=== PATIENT | female | born 1960 | race Caucasian/White ===

== ENCOUNTER → 2018-07-11 07:56 | Outpatient (CLI) | payer MEDICARE, SELFPAY ==
--- NOTE | 2018-07-11 07:59 | BI_ITS ---
MAMMOGRAPHY - BILATERAL SCREENING REASON FOR EXAM: Female, 58 years old. Routine annual screening examination. PERTINENT HISTORY: Mother with breast cancer. TECHNIQUE: Digital bilateral breast patti (3D mammographic acquisition) in the CC and MLO projections. 2-D mediolateral oblique (MLO) and craniocaudad (CC) views of both breasts were obtained. CAD: Full Field Digital Mammography with Computer Added Detection was performed. COMPARISON: Comparison is made with prior study dated June 18, 2017 and March 06, 2016. FINDINGS: Breast Composition: The breasts are almost entirely fatty. There are no dominant masses or suspicious calcifications. Stable benign-appearing right axillary lymph nodes. No other significant abnormalities are identified. There has been no significant change since the prior study. BI/SCREENING MAMM (CAD), BILAT IMPRESSION: Stable bilateral screening mammogram. Yearly follow-up mammogram recommended. (A) ASSESSMENT CATEGORY: BIRADS Category 2: Benign. A letter regarding these results will be sent to the patient by the facility within 30 days. Approximately 10% of breast cancers are not detected by mammography. A normal mammogram should not delay biopsy of a clinically suspicious abnormality. [id number] Electronically Signed: Willem Velasquez MD at 8:59 EST Tel [phone], Service support ,
== END ==
PROVIDERS: Family Provider Family Medicine; PCP Family Medicine; Referring Provider Family Medicine; Visit Provider Family Medicine
DX: Z12.31 Encounter for screening mammogram for malignant neoplasm of breast (principal)
CPT/HCPCS: 77063; 77067

== ENCOUNTER → 2018-12-04 | Outpatient (CLI) | payer MEDICARE, SELFPAY ==
--- NOTE | 2018-12-04 09:03 | RAD_ITS ---
STUDY: X-RAY - LEFT KNEE REASON FOR EXAM: Chronic pain. TECHNIQUE: 4 view(s) of the knee. COMPARISON: None. FINDINGS: Normal visualized distal femur. Normal visualized proximal tibia and fibula. Normal proximal tibiofibular articulation. There are marginal osteophytes and moderate joint space narrowing of the medial femorotibial compartment. There are small marginal osteophytes without joint space narrowing of the lateral femorotibial compartment. There are marginal osteophytes with mild joint space narrowing of the patellofemoral articulation. There is a small enthesophyte at the superior pole of the patella. RAD/Knee 4 or More Views IMPRESSION: Arthrosis of the medial femorotibial and patellofemoral compartments. Electronically Signed: Shashank Burton MD at 11:51 EDT Tel , Service support ,
== END | disposition home or self-care (01) ==
PROVIDERS: Family Provider Family Medicine; PCP Family Medicine; Referring Provider Orthopaedic Surgery; Visit Provider Orthopaedic Surgery
DX: M25.562 Pain in left knee (principal)
CPT/HCPCS: 73564

== ENCOUNTER → 2019-02-02 | Outpatient (CLI) | payer MEDICARE, SELFPAY ==
[2018-12-22 09:32] VITALS: BMI 36.8
--- NOTE | 2019-02-02 10:00 | RAD_ITS ---
STUDY: X-RAY - RIGHT KNEE REASON FOR EXAM: Female, 58 years old. Pain TECHNIQUE: 5 view(s) of the knee. COMPARISON: None. FINDINGS: There is demineralization of the visualized distal femur. There is demineralization of the tibia and fibula. Normal proximal tibiofibular articulation. There is severe degenerative arthrosis of the medial femorotibial compartment with severe joint space narrowing. There is moderate degenerative arthrosis of the lateral femorotibial compartment with moderate joint space narrowing. There is moderate degenerative arthrosis of the patellofemoral articulation. There is a soft tissue prominence in the suprapatellar region suggesting a small volume joint effusion. The soft tissue structures are unremarkable. No visualized fracture. RAD/Knee 4 or More Views IMPRESSION: Arthrosis, Most significant medial compartment. Small joint effusion. Electronically Signed: Ally Bender MD at 17:51 EDT Tel , Service support ,
== END | disposition home or self-care (01) ==
PROVIDERS: Family Provider Family Medicine; PCP Family Medicine; Referring Provider Orthopaedic Surgery; Visit Provider Orthopaedic Surgery
DX: M25.561 Pain in right knee (principal)
CPT/HCPCS: 73564

== ENCOUNTER 2019-03-03 05:53 | Observation (INO) | payer MEDICARE, SELFPAY ==
[2018-12-22 09:32] VITALS: BMI 36.8
[2019-02-24 10:18] VITALS: BP 136/77; PULSE 72; RESP 16; TEMP 36.6; O2SAT 97; BMI 37.5
[2019-02-24 11:05] LABS: Hemoglobin 13.6 g/dl (12.0-15.0); Mean Corp Hgb Conc 32.4 g/gl (32-36); Mean Corpuscular Hgb 29.2 pg (27.0-32.0); Mean Corpuscular Volume 90.1 fL (81-99); Mean Platelet Vol. 11.1 fl (6.2-12.0); Platelet Count 223 K/mm3 (150-450); RBC Distribution Width CV 14.4 % (11.6-14.6); RBC Distribution Width SD 47.3 fl (35.1-43.9); Red Blood Count 4.66 M/mm3 (4.2-5.4); White Blood Count 10.2 K/mm3 (4.4-11.0)
[2019-02-24 11:06] LABS: Scan Indicated on CBC? Y/N NO
[2019-02-24 11:25] LABS: Anion Gap 6 (5-15); BUN 10 mg/dL (7-18); Calcium,Total 9.1 mg/dL (8.5-10.1); Chloride 106 mmol/L (98-107); Creatinine, Serum 0.67 mg/dL (0.55-1.02); EST Glomerular Filtration Rate 97 mL/min (>60); Est Glom Filt Rate - Afr Amer 117 mL/min (>60); Estimated Creatinine Clearance 69.06 ml/min; Glucose 149 mg/dL (74-106); Potassium 3.8 mmol/L (3.5-5.1); Sodium Level 139 mmol/L (136-145)
[2019-03-03] VITALS (10 sets, daily range): BP systolic 111–136; BP diastolic 61–82; PULSE 71–84; RESP 16; TEMP 36.2–36.8; O2SAT 94–99; BMI 37.5
[2019-03-03] MEDS: Acetaminophen 500 MG Tablet PO (06:37)
[2019-03-03] MEDS: Pregabalin 75 MG Capsule PO (06:37)
[2019-03-03] MEDS: Celecoxib 200 MG Capsule PO (06:38)
[2019-03-03] MEDS: oxyCODONE HCl Cr 10 MG Tablet PO ×2 (06:41→21:40)
--- NOTE | 2019-03-03 07:15 | PCM.HP.BLA ---
History and Physical Date of Admission: 03/03/19 Intake Intake Visit Reasons: L KNEE Allergies etodolac [From Lodine] Allergy (Verified 12/22/18 09:32) Rash metaxalone [Metaxalone] Allergy (Verified 12/22/18 09:32) Rash Medications Cetirizine HCl [Zyrtec] 10 mg PO DAILY 09/09/13 [History Confirmed 02/02/19] acetaminophen 500 mg tablet 500 mg PO Q6H PRN 02/02/19 [History Confirmed 02/02/19] atorvastatin 40 mg tablet 40 mg PO DAILY 02/02/19 [History Confirmed 02/02/19] meloxicam 7.5 mg tablet 7.5 mg PO DAILY 02/02/19 [History Confirmed 02/02/19] tizanidine 2 mg capsule 2 mg PO Q8H PRN 02/02/19 [History Confirmed 02/02/19] PFSH Medical History Mitral valve prolapse (Acute) Heart murmur (Chronic) Social History Smoking Status: Former smoker HPI L KNEE : Chief Complaint: b/l knee pain Surgical H&P: Yes Details: Parts of this documentation were recorded by a scribe, this documentation accurately reflects the service provided and the decisions made by me, Jesse Porras, 02/02/19 0756. JONO DURAN is a 58 year old F here today for b/l knee pain left knee OA. Patient is here today to sign consent for TKA. Denies numbness, tingling or other associated symptoms. Denies any changes in pain since last visit. Has had left knee pain for about a year with it progressing over the last 3 months. She complains of pain over her medial knee and superior knee into her quad. Patient complains of popping, clicking and grinding. She has swelling that comes and goes. She ambulates with a cane due to her knee pain and knee instability. Patient denies any formal physical therapy. She had a cortisone injection on 12/04/18 which was helpful for a few days. She has a OTC knee brace which is not helpful. Patient states she has had pain of her right knee for about 4 years. She had an arthroscopy done about 4 years ago, denies any injections. ROS Const Reports system reviewed and no additional complaints, except as docu Eyes Reports system reviewed and no additional complaints, except as docu ENT Reports system reviewed and no additional complaints, except as docu Card Reports system reviewed and no additional complaints, except as docu Resp Reports system reviewed and no additional complaints, except as docu GI Reports system reviewed and no additional complaints, except as docu Musc Reports system reviewed and no additional complaints, except as docu, Reports as per HPI Skin/Breast Reports system reviewed and no additional complaints, except as docu Neuro Yes system reviewed and no additional complaints, except as docu Psych Reports system reviewed and no additional complaints, except as docu Endo Reports system reviewed and no additional complaints, except as docu Mir/Lymph Reports system reviewed and no additional complaints, except as docu Aller/Immun Reports system reviewed and no additional complaints, except as docu Ortho Exam Right Knee Skin/Wound: No erythema, No ecchymosis, No swelling Knee ROM: Yes ROM-Extension -20 to 0, No ROM-Flexion 0-140 (100) Examination: Yes Med jt line tenderness, No Lat jt line tenderness Patella Grind: Yes KNEE: no joint effusion this day. Left Knee Skin/Wound: No ecchymosis, No erythema, No swelling Homans Sign: No Knee ROM: Yes ROM-Extension -20 to 0, No ROM-Flexion 0-140 (100) Examination: Yes med jt line tenderness Stability: NML: Anterior Drawer, NML: Posterior Drawer, NML: Valgus 30, NML: Varus 30 Patella Grind: Yes Office Procedures Depo-Medrol 40 mg/mL suspension for injection (methylprednisolone acetate) 40 mg intra-articular ONCE Injections Yes Knee Right Details: Obtained consent for injection. Under sterile conditions, injected the patient's right knee with 2cc bupivacaine, 2cc lidocaine and 1cc depomedrol. The patient tolerated the injection well without any noted complication. Patient should call our office if redness develops, pain worsens or if they have any concerns. Office Meds Depo-Medrol Performing Provider: Jesse Porras DO Administered by: Jesse Porras DO on 02/02/19 10:31 Dose Route Admin Location Lot Number Expiration Date [employer] 40 mg intra-articular right knee [id number] 07/26/20 6875-6157-22 [facility] Supplemental Info 02/02/2019 x-ray right knee: Severe tricompartmental DJD worse medially joint space narrowing and spurring. 12/04/2018 x-ray left knee: Moderate to severe spurring medial compartment with joint space narrowing moderate spurring lateral compartment severe spurring patellofemoral compartment Assessment & Plan Problems 1. Primary osteoarthritis of left knee M17.12 2. Primary osteoarthritis of right knee M17.11 Plan Patient is here today to sign consent for left TKA. Reviewed the pre-operative plans with the patient. Risks and benefits of the procedure were fully explained, including but not limited to infection, neurovascular injury, continued pain, arthritis, stiffness, need for further surgery, re-injury, DVT, PE, general risks of anesthesia, and loss of limb or life. The patient understands all the risks and does wish to proceed with written consent. Educated that she is standing the same day of surgery. She should have some relief around 3 months after surgery. Patient educated that she may drive when she feels confident getting in and out of car and is not taking narcotics. Patient may travel about 6-8 weeks after surgery. Surgery date is March 03 2019. Obtained X-rays of patient's right knee. Personally reviewed x-rays. There is no obvious fracture, dislocation, or lucency noted. Increased risk with BL TKA the risk for blood clots and infection doubles. Option for her right knee would be a medial ward service supervisor brace or possible steroid injection. Patient wishes to proceed with injection of right knee this day. Will order medial ward service supervisor brace for right knee medial OA. Follow up 2 weeks post op or sooner if pain, swelling, numbness or associated symptoms, or concerns develop. All questions answered. Patient in agreement of plan. Orders Orders: Ortho Injections Today M17.11 Knee 4 or More Views Today M25.561 Medications Discontinued: Depo-Medrol (methylprednisolone acetate) Discontinued Reason: Office Medication has been Documented as given 40 mg intra-articular ONCE 1 mL 0RF NS M17.11 Coding Level of Care Code Off vis,est,level 4 Diagnoses Primary osteoarthritis of left knee M17.12 Primary osteoarthritis of right knee M17.11 Additional Codes buyer grain.knee () I have re-examined the patient. There are no clinical changes since date of exam
[2019-03-03] MEDS: Cefazolin 2 GM in 0.9% Normal Saline 100 ML IV ×3 (07:45→23:22)
[2019-03-03] MEDS: Morphine 4 MG/ML Syringe (08:58)
[2019-03-03] MEDS: Bupivacaine 0.5% PF 10 ML VIAL (08:58)
[2019-03-03] MEDS: Epinephrine (1 mg/ml) 1 MG/ML VIAL (08:58)
--- NOTE | 2019-03-03 09:35 | RAD_ITS ---
STUDY: X-RAY - LEFT KNEE REASON FOR EXAM: Female, 59 years old. Postop TECHNIQUE: 2 view(s) of the knee. COMPARISON: None. FINDINGS: There is no evidence of fracture or dislocation. The patient is status post left knee arthroplasty with intact hardware in satisfactory alignment. There is soft tissue swelling and subcutaneous air noted, consistent with the patient's recent postoperative state. There are no radiodense foreign bodies. RAD/Knee 1 or 2 Views IMPRESSION: Status post left knee arthroplasty with intact hardware in satisfactory alignment. No fracture or dislocation. Electronically Signed: Pranay Uriarte, at 16:48 EDT Tel , Service support ,
--- NOTE | 2019-03-03 09:40 | OP.PCM_ITS ---
Report of Operation Date of Procedure: 03/03/19 Description of Surgical Findings:: Preoperative diagnosis: Left knee DJD Postoperative diagnosis: Same Procedure: Left total knee arthroplasty Implant: [place] triathlon cemented left femoral component size 4, cemented tibial baseplate size 4, cemented asymmetric patella size 29, polyethylene X3 size 9 CS Anesthesia: Spinal with adductor canal block Tourniquet time: 82 minutes at 300 mmHg Complications: None Condition: Stable to PACU Estimated blood loss: 25 cc Indication for procedure: This is a 59-year-old female with long standing degenerative joint disease of the knee with 20 degree flexion contracture who has failed conservative treatment and wished to proceed with elective total knee arthroplasty. Risk benefits and alternatives were reviewed including; risk of bleeding, infection, nerve artery and tissue damage, continued pain, postoperative stiffness, venous thromboembolism, need for postoperative rehabilitation, mechanical feel to the knee, and expected postoperative course. Procedure: The patient was met in the preoperative holding area. The operative extremity was identified by both patient and physician and was marked. Patient was met by anesthesia. An adductor canal block was placed by anesthesia postoperatively the patient was brought back to the operating room on a wheeled cart and transferred to the operating table in the supine position. Anesthesia was started. A well-padded tourniquet was placed on the operative extremity. The patient was prepped and draped in the usual sterile fashion. A timeout was called to ensure the proper patient procedure and extremity were being contemplated. An Esmarch was used to exsanguinate the extremity. The tourniquet was inflated. A 10 blade scalpel was used to make a midline incision down through the skin and subcutaneous tissue. Skin retractors placed. Bovie was used to perform meticulous hemostasis. full-thickness flaps were elevated medial and lateral along the joint capsule. A deep blade scalpel was used to perform a medial parapatellar arthrotomy. The knee was brought to full extension. A Bovie was used to release the soft tissues off the most proximal aspect of the medial tibial plateau a three-quarter inch curved osteotome was also used for this process. The infrapatellar fat pad was excised. The fat pad was excised partially anterior lateral portion the anterior medial was elevated from the femur. the patella was everted. The knee was brought into flexion. An intramedullary drill was used followed by flexible intramedullary guide ceasar. The distal femoral cutting block was placed and set to remove 10 mm mm of bone and 5 degrees of valgus. The block was secured with pins and an oscillating saw was used to complete the distal femoral cut. During this, and all bony cuts retractors were used to protect the collateral ligaments. At this point a femoral sizer was used to measure the AP dimension of the femur. The sizer block was pinned in 3 degrees of external rotation. The sizing block was removed and the appropriately sized 4-in-1 cutting block was placed over the previously made pinholes. It was checked with an luc wing and the block was secured with pins. An oscillating saw was used to complete the anterior cut followed by the posterior cut followed by the posterior chamfer cut followed by the anterior chamfer cut. The block was removed as well as the fragments. A ronguer was used to remove excess osteophytes. The medial and lateral meniscus were excised as well as the ACL. At this point a PCL retractor was placed and an intramedullary drill was passed down the tibial canal followed by a solid intramedullary guide ceasar. The tibial cutting block was attached and set to remove 9 mm of bone from the high side. This was checked with an external alignment drop ceasar for slope and tilt. It was pinned into place. An oscillating saw was used to complete the tibial plateau cut and the block was removed. A large osteotome was used to elevate the fragment and a Lin and a Bovie were used to free the fragment from the surrounding soft tissue. A rongeur was once again used to remove osteophytes a lamina special assets officer was used to evaluate the posterior capsular structures. A three-quarter inch curved osteotome was used to remove posterior osteophytes. A spacer block was inserted in both extension and flexion to ensure adequate spacing. At this point the flexion gap was balanced however the extension gap was still tight therefore requiring for additional millimeter resection off of the distal femur by reinserting the distal femoral cutting block we then recut the chamfers cuts with the 4-in-1 cutting block and then re-trialed at this point both flexion and extension was balanced. trials were inserted full extension and flexion were achieved in varus and valgus stability throughout range of motion were seen, balancing techniques were performed. At this point the attention was turned towards the patella. A caliper was used to ensure sufficient bone stock to remove 10 mm of bone. A reamer was used to perform this task. Lug holes were made for the appropriate-sized patella. The patella trial was inserted and there was good patellar tracking with knee range of motion. The tibial baseplate was allowed to float into rotation and was marked on the tibial plateau with a Bovie. Lug holes were made in the femur and trials were removed. The tibial baseplate was then sized and its preparation was completed with a fin punch. The knee was thoroughly irrigated. A posterior capsular injection was performed with our standard cocktail. The knee was brought into flexion and irrigated again. The tibial baseplate was cemented. Excess cement was removed with curettes. The polyethylene component was inserted. The femoral component was cemented. The knee was brought into full extension and placed on a bump. The patellar component was cemented. At this point a Betadine rinse was placed and thoroughly irrigated after a few minutes. This was followed by an Iricept rinse which was allowed to sit for 1 minute and then thoroughly irrigated.At this point all gloves were changed. The knee was thoroughly irrigated the joint capsule was closed with #1 Ethibond. Tourniquet was let down followed by 0 Vicryl and 2-0 Vicryl in the subcutaneous tissues. followed by toshia in the skin. Dressing was applied in the form of Xeroform 4 x 4 ABD web roll and an Tom wrap from the foot to the groin. The patient tolerated the procedure well, all counts were correct patient was brought back to the PACU in stable condition.
[2019-03-03] MEDS: HYDROmorphone 0.5 MG/0.5 ML SYRINGE IV (11:27)
[2019-03-03] MEDS: Ketorolac 30 MG/ML Syringe IV (12:59)
[2019-03-03] MEDS: Lactated Ringers 1,000 ML 125 ML IV (13:35)
[2019-03-03] MEDS: APIXABAN 2.5 MG TABLET PO ×2 (13:37→21:40)
[2019-03-03] MEDS: Senna/Docusate Sodium 1 Tablet 2 TABLET PO ×2 (13:37→21:39)
[2019-03-03] MEDS: Acetaminophen 500 MG Tablet 1000 MG PO ×2 (13:38→21:39)
[2019-03-03] MEDS: oxyCODONE 5 MG Tablet PO (17:32)
[2019-03-03] MEDS: Atorvastatin Calcium 40 MG Tablet PO (21:39)
[2019-03-03] MEDS: Loratadine 10 MG Tablet PO (21:40)
[2019-03-04 02:05] VITALS: BP 124/76; PULSE 70; RESP 16; TEMP 36.8; O2SAT 99
[2019-03-04] MEDS: oxyCODONE 5 MG Tablet PO ×2 (03:00→19:43)
[2019-03-04] MEDS: Acetaminophen 500 MG Tablet 1000 MG PO ×3 (05:55→22:12)
[2019-03-04 05:56] LABS: Hematocrit 37.8 % (37-47); Hemoglobin 12.3 g/dl (12.0-15.0); Mean Corp Hgb Conc 32.5 g/gl (32-36); Mean Corpuscular Hgb 29.4 pg (27.0-32.0); Mean Corpuscular Volume 90.2 fL (81-99); Mean Platelet Vol. 11.3 fl (6.2-12.0); Platelet Count 214 K/mm3 (150-450); RBC Distribution Width CV 14.3 % (11.6-14.6); RBC Distribution Width SD 47.1 fl (35.1-43.9); Red Blood Count 4.19 M/mm3 (4.2-5.4); White Blood Count 12.9 K/mm3 (4.4-11.0)
[2019-03-04 06:08] LABS: Scan Indicated on CBC? Y/N NO
--- NOTE | 2019-03-04 06:10 | PCM.PN.ORT ---
Subjective: Doing well pain controlled complaints fevers chills nausea vomiting shortness of breath - Physical Exam Extremities: - - Dressing clean dry and intact compartment soft neurovascular intact Vital Signs Temp Pulse Resp BP Pulse Ox 98.2 F 70 16 124/76 H 99 03/04/19 02:05 03/04/19 02:05 03/04/19 02:05 03/04/19 02:05 03/04/19 02:05 Oxygen Delivery Method Room Air Weight: 198 lb 13.711 oz Body Mass Index (BMI) 37.5 Intake and Output for Last 24 Hours 03/02/19 03/03/19 03/04/19 23:59 23:59 23:59 Intake Total 1899 / 1899 Balance 1899 / 1899 Laboratory Tests Past 24 Hrs 03/04/19 03/04/19 05:42 05:42 WBC 12.9 H RBC 4.19 L Hgb 12.3 Hct 37.8 MCV 90.2 MCH 29.4 MCHC 32.5 RDW 14.3 RDW Differential 47.1 H Plt Count 214 MPV 11.3 Sodium Pending Potassium Pending Chloride Pending Carbon Dioxide Pending Anion Gap Pending BUN Pending Creatinine Pending Est GFR (MDRD) Af Amer Pending Est GFR (MDRD) Non-Af Pending BUN/Creatinine Ratio Pending Glucose Pending Calcium Pending Medical Necessity - Tobacco Use Smoking Status: Current every day smoker Tobacco Use: Cigarettes Assessment/Plan Postop day #1 TKA DC planning possibly today to home Nursing to be changed prior to discharge or postop day number 2 AM New Eliquis 2.5 twice daily for 2 additional weeks Follow-up in the office 2 weeks
--- NOTE | 2019-03-04 06:11 | PCM.DC.SUM ---
Discharge Date and Diagnosis Date of Admission: 03/03/19 Date of Discharge: 03/04/19 Hospital Course and Treatment Summary of Care Provided: The patient is a 59 year old F [] - Physical Exam General: Alert, Oriented x3, Cooperative, No apparent distress Vital Signs Temp Pulse Resp BP Pulse Ox 98.2 F 70 16 124/76 H 99 03/04/19 02:05 03/04/19 02:05 03/04/19 02:05 03/04/19 02:05 03/04/19 02:05 Oxygen Delivery Method Room Air Weight: 198 lb 13.711 oz Body Mass Index (BMI) 37.5 Intake and Output for Last 24 Hours 03/02/19 03/03/19 03/04/19 23:59 23:59 23:59 Intake Total 1899 / 1899 Balance 1899 / 1899 Laboratory Tests Past 24 Hrs 03/04/19 03/04/19 05:42 05:42 WBC 12.9 H RBC 4.19 L Hgb 12.3 Hct 37.8 MCV 90.2 MCH 29.4 MCHC 32.5 RDW 14.3 RDW Differential 47.1 H Plt Count 214 MPV 11.3 Sodium Pending Potassium Pending Chloride Pending Carbon Dioxide Pending Anion Gap Pending BUN Pending Creatinine Pending Est GFR (MDRD) Af Amer Pending Est GFR (MDRD) Non-Af Pending BUN/Creatinine Ratio Pending Glucose Pending Calcium Pending Discharge Diet: No Restrictions Additional Activity Instructions:: Ice and elevate next week while not ambulating. Encourage ambulation weightbearing as tolerated. Encourage FULL knee extension and flexion 1 time EVERY time you get up and down and MULTIPLE times per day. Begin showering postop day #3. Remove the dressing prior to shower gently wash with warm water and antibacterial soap then pat dry place ABD pad and MARCK hose over top. This is to be done daily. If not showering daily must clean incision and change dressing daily. Do not allow animals near incision keep clean. Follow anticoagulation recommendations. Call Dr. Porras with any concerns. Call your doctor if you observe: Fever of 101 or Higher, Shortness of breath, Chest pain Home Medications: Medications to take at Discharge Cetirizine HCl [Zyrtec] 10 mg PO QHS 09/09/13 acetaminophen 500 mg tablet 500 mg PO Q6H PRN 02/02/19 atorvastatin 40 mg tablet 40 mg PO DAILY 02/02/19 tizanidine 2 mg capsule 2 mg PO Q8H PRN 02/02/19 Meloxicam [Mobic] 7.5 mg PO BID 02/24/19 Mv-Mn/Folic Acid/Calcium/Vit K [Women's 50 Plus Multivit Tab] 1 ea PO DAILY 02/24/19 Primary Care Physician: Alf Ann DO [Primary Care Provider] - Medical Necessity - Tobacco Use Smoking Status: Current every day smoker Tobacco Use: Cigarettes Meaningful Use Info Meaningful Use Diagnoses (Choose all that apply): None applicable
[2019-03-04 06:24] LABS: Anion Gap 7 (5-15); BUN 8 mg/dL (7-18); BUN/Creat Ratio 13.8 RATIO (10-20); Calcium,Total 8.7 mg/dL (8.5-10.1); Chloride 105 mmol/L (98-107); Creatinine, Serum 0.58 mg/dL (0.55-1.02); EST Glomerular Filtration Rate 113 mL/min (>60); Est Glom Filt Rate - Afr Amer 137 mL/min (>60); Estimated Creatinine Clearance 79.78 ml/min; Glucose 89 mg/dL (74-106); Potassium 4.1 mmol/L (3.5-5.1); Sodium Level 138 mmol/L (136-145)
--- NOTE | 2019-03-04 06:31 | DCINST_ITS ---
Discharge Diet: No Restrictions Additional Activity Instructions:: Ice and elevate next week while not ambulating. Encourage ambulation weightbearing as tolerated. Encourage FULL knee extension and flexion 1 time EVERY time you get up and down and MULTIPLE times per day. Begin showering postop day #3. Remove the dressing prior to s hower gently wash with warm water and antibacterial soap then pat dry place ABD pad and MARCK hose over top. This is to be done daily. If not showering daily must clean incision and change dressing daily. Do not allow animals near incision keep clean. Follow anticoagulation recommendations. Call Dr. Porras with any concerns. Call your doctor if you observe: Fever of 101 or Higher, Shortness of breath, Chest pain Allergies/Adverse Reactions: Allergies etodolac [From Lodine] Allergy (Verified 03/03/19 06:21) Rash metaxalone [Metaxalone] Allergy (Verified 03/03/19 06:21) Rash Medications to take at Discharge Cetirizine HCl [Zyrtec] 10 mg PO QHS 09/09/13 acetaminophen 500 mg tablet 500 mg PO Q6H PRN 02/02/19 atorvastatin 40 mg tablet 40 mg PO DAILY 02/02/19 tizanidine 2 mg capsule 2 mg PO Q8H PRN 02/02/19 Mv-Mn/Folic Acid/Calcium/Vit K [Women's 50 Plus Multivit Tab] 1 ea PO DAILY 02/24/19 Acetaminophen [Tylenol] 1,000 mg PO Q8 #100 tab 03/04/19 Apixaban [Eliquis] 2.5 mg PO BID 14 Days #28 tab 03/04/19 Oxycodone [Oxyir] 5 - 10 mg PO Q4H PRN PRN 7 Days #60 tab 03/04/19 The following prescriptions were given: Apixaban [Eliquis] 2.5 mg PO BID 14 Days #28 tab Transmission Status: Received by [facility] Oxycodone [Oxyir] 5 - 10 mg PO Q4H PRN PRN 7 Days #60 tab PRN Reason: Mod-Severe Pain (-06/04) Transmission Status: Received by [facility] Acetaminophen [Tylenol] 1,000 mg PO Q8 #100 tab Transmission Status: Received by [facility] Primary Care Physician: Alf Ann DO [Primary Care Provider] - Test Results: Test results from this visit will be discussed in further detail at your follow- up appointment, if applicable. Please Follow Up With: Jesse Porras DO - 2 Weeks
[2019-03-04] MEDS: Ketorolac 30 MG/ML Syringe IV (07:28)
[2019-03-04] MEDS: 0.9% NaCl Peripheral Flush Adult/Peds IV ×2 (07:29→14:02)
[2019-03-04 09:56] VITALS: BP 113/66; PULSE 76; RESP 16; TEMP 36.9; O2SAT 93
[2019-03-04] MEDS: APIXABAN 2.5 MG TABLET PO ×2 (10:13→22:11)
[2019-03-04] MEDS: oxyCODONE HCl Cr 10 MG Tablet PO (10:13)
[2019-03-04] MEDS: Senna/Docusate Sodium 1 Tablet 2 TABLET PO ×2 (10:14→22:11)
--- NOTE | 2019-03-04 11:35 | CASEMGMT ---
Addendum entered by Mine Rahman 03/05/19 16:37: 03/04/19: 1325 Call placed to [facility] to inquire about benefit of delivery of meals. They informed this RN COLE I would need to call [facility] @ and inquire about Post Discharge Meal Benefit. Call placed to [facility] and spoke to Nancy. Information given re: pt and plan for discharge tomorrow. They gave option for pt to receive 2 meals/day for up to 10 days or to receive 64 meals/year. Pt made aware and she chose option to have 20 meals delivered. Per SC, all meals will be delivered to pt's home on Saturday via [employer] and no signature is required. Pt made aware and agreeable. Original Note: RN CM MERCHANT PATROLLER CM to room to meet with patient for initial transition planning/care coordination assessment. RADHA GALVAN introduced self and role at [facility]. Pt voices understanding and consents to assessment at this time. Pt resting in bed in no distress at this time. Pt is A/O at this time and answers all questions appropriately. Care providers, pharmacy, and demographics verified/updated at this time. PCP: Seth Specialists: Noah--ortho surgeon, SHAUNNA Mathur. Cardiology in [place]. Preferred Pharmacy: [facility] Retail Insurance: [facility] Prescription Benefit: Yes Living Will/HPOA: Does not have either LW or HCPOA. Would like to talk to J CARLOS to complete paperwork. Referral made with J CARLOS Longo. LNOK: Living Arrangements: Lives with in 2-story home. 35 yr-old handicapped son lives with them. Pt states she does have to use the 2nd floor where her bedroom is, but could sleep on the ground floor if needed. Has a shower and bathroom on the 2nd floor. States can use BSC during the day and is able to assist as needed. Was independent prior to surgery/hospitalization. Transportation: Pt states drove prior to surgery. or girlfriend will drive her home @ discharge. States no transportation concerns. DME: States has the following DME: Shower chair, BSC, cane, rails/grab bars, hand held shower, rollator Pt states no need for further DME at this time. HHC/SNF: No history of either. States would like HHC @ discharge. States no preference as long as they are in-network with [facility]. Pt made aware [facility] is in-network and is agreeable to them. Call placed to Selena @ [facility] and referral made. She states they are able to accept pt. Pt states she is able to get meals delivered to her home through [facility]. She states she had called them to request them be sent to her home but they informed her they needed information from the hospital. RN CM will call them to assist with delivery of meals. Pt wishes to return home and states has no concerns with going home at time of discharge. CM to follow for any further discharge planning/needs. Pt voices no further concerns/needs at this time. Advised pt to ask for CM if any further questions/concerns/needs arise. Voices understanding. PLAN: Home with [facility]. Rayshawn MAGAÑA RN CM
[2019-03-04 14:00] VITALS: BP 134/83; PULSE 97; RESP 16; TEMP 37.1; O2SAT 98
[2019-03-04] MEDS: Ondansetron 4 MG/2 ML Vial IV (14:02)
--- NOTE | 2019-03-04 14:46 | CASEMGMT ---
Social Work Note SW received referral for advanced directives. SW attempted to meet with pt, pt soundly sleeping. SW left advanced directives documents on pt's table. Ayesha Carter GALLEY STRIPPER, END FRAZER
[2019-03-04 19:39] VITALS: BP 125/65; PULSE 76; RESP 16; TEMP 37.5; O2SAT 96
[2019-03-04] MEDS: Loratadine 10 MG Tablet PO (22:12)
[2019-03-04] MEDS: Atorvastatin Calcium 40 MG Tablet PO (22:12)
[2019-03-05 02:11] VITALS: BP 121/69; PULSE 88; RESP 16; TEMP 37.4; O2SAT 95
[2019-03-05] MEDS: Ketorolac 30 MG/ML Syringe IV (02:19)
[2019-03-05] MEDS: 0.9% NaCl Peripheral Flush Adult/Peds IV (02:20)
[2019-03-05] MEDS: Acetaminophen 500 MG Tablet 1000 MG PO (05:28)
[2019-03-05 06:02] LABS: Hematocrit 34.1 % (37-47); Hemoglobin 10.9 g/dl (12.0-15.0); Mean Corpuscular Hgb 28.7 pg (27.0-32.0); Mean Corpuscular Volume 89.7 fL (81-99); Mean Platelet Vol. 11.4 fl (6.2-12.0); Platelet Count 206 K/mm3 (150-450); RBC Distribution Width CV 14.1 % (11.6-14.6); RBC Distribution Width SD 46.4 fl (35.1-43.9); White Blood Count 11.7 K/mm3 (4.4-11.0)
[2019-03-05 06:18] LABS: Scan Indicated on CBC? Y/N NO
[2019-03-05 09:00] VITALS: BP 122/42; PULSE 88; RESP 18; TEMP 36.9; O2SAT 94
[2019-03-05] MEDS: Senna/Docusate Sodium 1 Tablet 2 TABLET PO (09:08)
[2019-03-05] MEDS: APIXABAN 2.5 MG TABLET PO (09:08)
--- NOTE | 2019-03-05 10:25 | CASEMGMT ---
Social Work: Referral to assist patient with advanced directives. Met with patient in room to complete documents. Provided patient with education regarding both the LW and the DPOAHC. Patient choosing at this time to only complete the DPOAHC. Forms completed, signed, notarized, copied and put in chart. Patient provided with original documents and instructed to give copy to other health care providers as well as family members. YESSI Suazo
--- NOTE | 2019-03-05 12:35 | CASEMGMT ---
RADHA GALVAN NOTE: Reviewed WOODARD form with patient. Denies having any questions. WOODARD form signed by pt, copy made and placed on chart, and original given to pt. Selena @ [facility] made aware pt is discharging today. Plan for start of care is tomorrow, 03/06/19. Rayshawn MAGAÑA RN CM
--- NOTE | 2019-03-05 13:31 | CASEMGMT ---
RADHA GALVAN NOTE: Call received from Selena @ [facility] requesting HCPOA paperwork be faxed to [facility]. Same done. Rayshawn MAGAÑA RN CM
== END 2019-03-05 12:30 | disposition home health service (06) ==
LOC: ACINP 14:16 → MS3 14:16
PROVIDERS: Anesthesiology; Admitting Provider Orthopaedic Surgery; Family Provider Family Medicine; PCP Family Medicine; Referring Provider Orthopaedic Surgery; Visit Provider Orthopaedic Surgery
PROC: (CPT 27447; principal; 2019-03-03 07:05)
DX: M17.0 Bilateral primary osteoarthritis of knee (principal); Z79.899 Other long term (current) drug therapy; R01.1 Cardiac murmur, unspecified; F17.210 Nicotine dependence, cigarettes, uncomplicated
CPT/HCPCS: 01400; 27447; 64447; 36415; 73560; 80048; 85027; 87081; 96361; 96365; 96375; 96376; 97110; 97162; 97166; 97530; 97535; 99218; 99406; C1776; J7120; A4216; G0378; G0379; J2405; J3490

== ENCOUNTER → 2019-04-01 09:23 | Outpatient (CLI) | payer MEDICARE, SELFPAY ==
[2019-04-01 07:50] VITALS: BMI 37.5
--- NOTE | 2019-04-01 09:24 | RAD_ITS ---
STUDY: X-RAY - LUMBAR SPINE REASON FOR EXAM: Female, 59 years old. Low back pain. Bilateral hip pain TECHNIQUE: 3 view(s) of the lumbar spine were obtained. COMPARISON: None FINDINGS: Normal lumbar lordosis. There is a dextroscoliosis of the lumbar spine. There is multilevel endplate spondylosis of the lumbar vertebrae. There is sacroiliac spurring and sclerosis. There is no demonstrated fracture. The soft tissue structures are unremarkable. RAD/Lumbar Spine 2 or 3 Views IMPRESSION: Degenerative changes of the spine, as detailed above. Electronically Signed: Cluade Abarca MD at 23:10 EDT , Service support ,
--- NOTE | 2019-04-01 09:24 | RAD_ITS ---
STUDY: X-RAY - PELVIS AND BILATERAL HIPS REASON FOR EXAM: Female, 59 years old. Pain TECHNIQUE: AP view of the pelvis.? 2 views of the right hip, and 2 views of the left hip were obtained. COMPARISON: None. FINDINGS: There is a normal bowel gas pattern. Normal visualized soft tissue structures. There is sacroiliac sclerosis and spurring. Normal bilateral superior and inferior pubic rami. Normal pubic symphysis. Normal bilateral ischial tuberosities. Normal visualized right femoral head. Normal right acetabulum. Normal right hip joint. There are osteoarthritic changes of the left femoral head with marginal osteophyte formation. Normal left acetabulum. There is severe articular joint space narrowing of the left hip. No acute fracture. RAD/Hips B/L min 2 views w/ Pelvis IMPRESSION: Degenerative change of the left hip. Sacroiliac spurring and sclerosis. Electronically Signed: Claude Abarca MD at 23:11 EDT , Service support ,
== END ==
PROVIDERS: Family Provider Family Medicine; PCP Family Medicine; Referring Provider Orthopaedic Surgery; Visit Provider Orthopaedic Surgery
DX: M25.551 Pain in right hip (principal); M25.552 Pain in left hip; M54.9 Dorsalgia, unspecified
CPT/HCPCS: 72100; 73521

== ENCOUNTER → 2019-04-22 | Outpatient (CLI) | payer MEDICARE, SELFPAY ==
[2019-04-22 09:48] VITALS: BMI 37.5
--- NOTE | 2019-04-22 09:54 | RAD_ITS ---
STUDY: X-RAY - PELVIS AND LEFT HIP REASON FOR EXAM: Female, 59 years old. Pain in the left hip TECHNIQUE: 3 views of the pelvis and hip. COMPARISON: April 01, 2019 FINDINGS: There is a non-specific bowel gas pattern. Normal visualized soft tissue structures. Normal bilateral iliac wings, sacroiliac joints and visualized sacrum. Normal bilateral superior and inferior pubic rami. Normal pubic symphysis. Normal bilateral ischial tuberosities. Normal visualized femoral head. Normal acetabulum. Severely narrowed joint space with subchondral sclerosis RAD/HIP, UNI W/ Pelvis 2-3 Views IMPRESSION: Severe osteoarthritic changes of left hip. No significant change since prior study. Electronically Signed: Sorin Saavedra MD at 21:24 EDT , Service support ,
== END | disposition home or self-care (01) ==
PROVIDERS: Family Provider Family Medicine; PCP Family Medicine; Referring Provider Orthopaedic Surgery; Visit Provider Orthopaedic Surgery
DX: M16.12 Unilateral primary osteoarthritis, left hip (principal)
CPT/HCPCS: 73502

== ENCOUNTER 2019-05-05 05:25 | Inpatient (IN) | payer MEDICARE, SELFPAY ==
[2019-04-22 09:48] VITALS: BMI 37.5
[2019-04-29 09:14] VITALS: BP 138/89; PULSE 87; RESP 16; TEMP 36.2; O2SAT 95; BMI 36.1
[2019-04-29 09:42] LABS: Hemoglobin 14.4 g/dL (12.0-15.0); Mean Corpuscular Hgb 28.8 pg (27.0-32.0); Mean Platelet Vol. 11.2 fl (6.2-12.0); Platelet Count 227 K/mm3 (150-450); RBC Distribution Width CV 13.7 % (11.6-14.6); White Blood Count 9.4 K/mm3 (4.4-11.0)
--- NOTE | 2019-05-04 16:29 | PCM.HP.BLA ---
History and Physical Date of Admission: 05/05/19 Intake Vital Signs 04/22/19 Body Mass Index (BMI) 37.5 Intake Visit Reasons: LEFT HIP Chief Complaint: lt knee replacement Allergies etodolac [From Lodine] Allergy (Verified 03/03/19 06:21) Rash metaxalone [Metaxalone] Allergy (Verified 03/03/19 06:21) Rash Medications Cetirizine HCl [Zyrtec] 10 mg PO QHS 09/09/13 [History Confirmed 03/03/19] acetaminophen 500 mg tablet 500 mg PO Q6H PRN 02/02/19 [History Confirmed 03/03/19] atorvastatin 40 mg tablet 40 mg PO DAILY 02/02/19 [History Confirmed 03/03/19] tizanidine 2 mg capsule 2 mg PO Q8H PRN 02/02/19 [History Confirmed 03/03/19] Mv-Mn/Folic Acid/Calcium/Vit K [Women's 50 Plus Multivit Tab] 1 ea PO DAILY 02/24/19 [History Confirmed 03/03/19] Acetaminophen [Tylenol] 1,000 mg PO Q8 #100 tab 03/04/19 [Rx] Ondansetron HCl [Zofran] 4 mg PO Q6H PRN PRN 5 Days #20 tab 03/04/19 [Rx] PFSH Medical History (Updated 03/03/19 @ 07:15 by Jesse Porras DO) Mitral valve prolapse (Acute) Heart murmur (Chronic) Social History (Updated 04/22/19 @ 11:19 by Jesse Porras DO) Smoking Status: Former smoker HPI LEFT HIP: Chief Complaint: left hip pain Details: Parts of this documentation were recorded by a scribe, this documentation accurately reflects the service provided and the decisions made by , Jesse Porras DO 04/22/19 [id number]. JONO DURAN is a 59 year old F here today for left hip. Patient wishes to discuss having her left PABLITO scheduled. Patient continue to have left groin pain and left lateral sided pain with any movement. She had a left greater troch injection on 04/01/19 which she states was only effective for about 1 week. Denies numbness, tingling or other associated symptoms. Patient left knee is doing well. Denies any changes in her health hx. ROS Const Reports system reviewed and no additional complaints, except as docu Eyes Reports system reviewed and no additional complaints, except as docu ENT Reports system reviewed and no additional complaints, except as docu Card Reports system reviewed and no additional complaints, except as docu Resp Reports system reviewed and no additional complaints, except as docu GI Reports system reviewed and no additional complaints, except as docu Musc Reports system reviewed and no additional complaints, except as docu, Reports as per HPI Skin/Breast Reports system reviewed and no additional complaints, except as docu Neuro Yes system reviewed and no additional complaints, except as docu Psych Reports system reviewed and no additional complaints, except as docu Endo Reports system reviewed and no additional complaints, except as docu Mir/Lymph Reports system reviewed and no additional complaints, except as docu Aller/Immun Reports system reviewed and no additional complaints, except as docu Ortho Exam Left Knee Homans Sign: No Knee ROM: Yes ROM-Extension -20 to 0, Yes ROM-Flexion 0-140 KNEE: insision is healing well no joint effusion 120 with flexion good extension Right Hip Homans Sign: No HIP: no groin pain with internal or external rotation Left Hip Skin/Wound: No Ecchymosis, No soft tissue swelling, No Erythema Hip: Absent eccymosis, soft tissue swelling or erythema HIP: 5 internal rotation with groin pain 90 external rotation with pain TTP over greater troch TTP paraspinal notch Supplemental Info 04/22/2019 x-ray left hip: [id number] DJD Assessment & Plan Problems 1. Primary osteoarthritis of left hip M16.12 Plan Obtained X-rays of patient's left hip. Personally reviewed x-rays. There is no obvious fracture, dislocation, or lucency noted. Patient educated that she does have bone on bone OA of her left hip. Recommended a left PABLITO since patient has already had PT and has had a left greater troch bursa injection which was not helpful with her pain. Reviewed the pre-operative plans with the patient. Risks and benefits of the procedure were fully explained, including but not limited to infection, neurovascular injury, continued pain, arthritis, stiffness, need for further surgery, re-injury, DVT, PE, general risks of anesthesia, and loss of limb or life. The patient understands all the risks and does wish to proceed with written consent. Educated that there are very strict hip precautions post op. Educated that she may have continued pain from her pain. We will prescribe patient Ultram today for her pain until surgery. Surgery date is set for 05/05/19. Follow up 2 weeks post op or sooner if pain, swelling, numbness or associated symptoms, or concerns develop. All questions answered. Patient in agreement of plan. Orders Orders: HIP, UNI W/ Pelvis 2-3 Views Today M16.12 Coding Level of Care Code Off vis,est,level 4 Diagnoses Primary osteoarthritis of left hip M16.12 I have re-examined the patient. There are no clinical changes since date of exam
[2019-05-05] VITALS (13 sets, daily range): BP systolic 101–136; BP diastolic 55–79; PULSE 66–90; RESP 16–18; TEMP 35.6–36.7; O2SAT 93–100; BMI 36.1
[2019-05-05] MEDS: Acetaminophen 500 MG Tablet 1000 MG PO ×3 (06:08→21:30)
[2019-05-05] MEDS: Gabapentin 600 MG Tablet PO (06:09)
[2019-05-05] MEDS: Celecoxib 200 MG Capsule 400 MG PO (06:09)
[2019-05-05] MEDS: Lactated Ringers 1,000 ML 100 ML IV (06:11)
[2019-05-05] MEDS: Magnesium Sulfate 4gm/100mL 4 GM/100 ML IV.SOLN. IV (06:11)
[2019-05-05] MEDS: Scopolamine 1mg/72hr Patch 1 PATCH TRANSDERM. (06:15)
[2019-05-05 07:06] LABS: Bedside Glucose 175 mg/dL (70-110)
[2019-05-05] MEDS: Cefazolin 2 GM in 0.9% Normal Saline 100 ML IV ×3 (07:25→23:57)
[2019-05-05] MEDS: dexAMETHasone 10 MG/ML Vial IV (07:51)
--- NOTE | 2019-05-05 09:35 | RAD_ITS ---
STUDY: X-RAY - PELVIS AND LEFT HIP REASON FOR EXAM: Female, 59 years old. Total hip replacement. TECHNIQUE: 2 views of the pelvis and hip. COMPARISON: Comparison is made with prior study dated April 22, 2019. FINDINGS: The patient is status post left hip replacement. There is good alignment. Postoperative soft tissue changes. RAD/Hip Min 2 Views (Portable) IMPRESSION: Status post left hip replacement. There is good alignment. Postoperative soft tissue changes. Electronically Signed: Willem Velasquez, at 15:48 EDT , Service support ,
--- NOTE | 2019-05-05 09:37 | OP.PCM_ITS ---
Report of Operation Date of Procedure: 05/05/19 Description of Surgical Findings:: Preoperative diagnosis: DJD left hip Postoperative diagnosis: Same Procedure: Left total hip arthroplasty Implants: Gwen Accolade II stem size 4 132 degree neck angle is 4 neck length 52 mm cup with 40 mm cancellous screw and 20 mm cancellous screw 32 mm ceramic head Anesthesia: Spinal EBL: 200 cc Complications: None Condition: Stable to PACU Indication for procedure: This is a 59-year-old female who has had long-standing arthrosis of the hip who has failed conservative treatment and wished to undergo total hip arthroplasty. We did discuss operative versus nonoperative intervention including risks of bleeding, infection , nerve artery tissue damage, need for further surgery, fracture, leg length discrepancy dislocation blood clot and need for postoperative physical therapy and postoperative expectations. An informed consent was signed. Procedure: Patient was met in the preoperative holding area once again the operative extremity was identified by both patient and physician and was marked. Patient was met by anesthesia and a spinal was placed. A Hunter catheter was placed patient was then positioned in the lateral decubitus position on a well- padded pegboard with an axillary roll. All bony prominences were checked and padded. The patient was prepped and draped in the usual sterile fashion. A timeout was called to ensure the proper patient procedure and extremity were being contemplated. Anatomic landmarks were palpated and marked for a standard posterior lateral approach. A 10 blade scalpel was used to make a posterior incision through the skin and subcutaneous tissue. In retractors were used and electrocautery was used to maintain meticulous hemostasis and dissect full- thickness flaps until the gluteal fascia was reached. The gluteal fascia was incised in line with the gluteal fibers. The bursal tissue was then freed from the underside and a Charnley retractor was placed. The fat pad was elevated off of the external rotators with electrocautery and the external rotators were di ssected off of the greater trochanter including the piriformis and were tagged with #1 Ethibond for later repair. The joint capsule opened with posterior trapdoor technique. The hip was surgically dislocated. Hohmann was placed around the lesser trochanter. A neck cutting guide was used to tru the neck with a Bovie and an oscillating saw was used complete the femoral neck cut. The femoral head was then removed and sized. We then turned our attention to the acetabulum. A Bovie was used to make a perforation in the anterior joint capsule and a pointed Hohmann was placed this was repeated in the 6 o'clock position a wide magen was placed there. With a long handled knife the labral and pulvinar tissue were removed. We then began sequential reaming until the appropriate size was achieved. We then fit the acetabular shell in place with good rug hooker hand to the acetabulum. We then proceeded to place a posterior superior screw by drilling first measuring and inserting the screw. We then inserted a trial liner. And turned our attention back to the femur at this point a femoral elevator was used. As well as a pointed wide Hohmann around the lesser trochanter and a Hohmann to help retract the gluteus medius. A box chisel was used to remove excess lateral neck followed by a canal finder and a lateralizing reamer. This was followed by sequential broaches. Attention was made of the v ersion within the canal. Once the final broach was seated we then trialed reduced the hip it was determined that a 132 degree neck angle with a -4 neck length was the appropriate size. We then checked ability with shuck testing as well as flexion and internal rotation. then proceeded with hip extension and checked leg lengths at the knees and heels. At this point trials were removed. A posterior lipped liner was inserted to the cup. The femoral stem was inserted. We re-trialed and then proceeded to impact the femoral head onto the Freedom taper. We then surgically reduce the hip check stability again and leg lengths and were satisfied. Betadine rinse was allowed to sit for 5 minutes while everyone changed their gloves. Thorough irrigation was performed. Followed by closure of the external rotators with #2 FiberWire followed by closure of gluteal fascia with #1 Ethibond. 0 Vicryl fat stitches and 2-0 Vicryl subcutaneous stitches and toshia in the skin. Dressing was applied Mepilex and an abduction pillow was placed. Patient tolerated the procedure well there was no intraoperative complications all counts were correct and the patient was brought back to the PACU in stable condition
[2019-05-05] MEDS: Lactated Ringers 1,000 ML 125 ML IV ×2 (11:52→20:29)
[2019-05-05] MEDS: Senna/Docusate Sodium 1 Tablet 2 TABLET PO ×2 (13:20→21:29)
[2019-05-05] MEDS: traMADol 50 MG Tablet PO ×2 (14:16→15:14)
[2019-05-05] MEDS: oxyCODONE 5 MG Tablet PO ×2 (17:14→21:31)
[2019-05-05] MEDS: Loratadine 10 MG Tablet PO (21:28)
[2019-05-05] MEDS: APIXABAN 2.5 MG TABLET PO (21:28)
[2019-05-05] MEDS: Atorvastatin Calcium 40 MG Tablet PO (21:29)
[2019-05-06 03:00] VITALS: BP 116/69; PULSE 68; RESP 18; TEMP 36.6; O2SAT 95
[2019-05-06] MEDS: Acetaminophen 500 MG Tablet 1000 MG PO ×2 (05:03→14:02)
[2019-05-06] MEDS: oxyCODONE 5 MG Tablet PO ×2 (05:05→14:02)
[2019-05-06 05:59] LABS: Hematocrit 36.9 % (37-47); Hemoglobin 11.7 g/dL (12.0-15.0); Mean Corp Hgb Conc 31.7 g/dL (32-36); Mean Corpuscular Hgb 28.5 pg (27.0-32.0); Mean Platelet Vol. 11.2 fl (6.2-12.0); Platelet Count 210 K/mm3 (150-450); RBC Distribution Width CV 13.2 % (11.6-14.6); RBC Distribution Width SD 43.4 fl (35.1-43.9); White Blood Count 20.5 K/mm3 (4.4-11.0)
[2019-05-06 06:14] LABS: Anion Gap 7 (5-15); BUN 10 mg/dL (7-18); BUN/Creat Ratio 14.2 RATIO (10-20); Calcium,Total 8.6 mg/dL (8.5-10.1); Chloride 107 mmol/L (98-107); EST Glomerular Filtration Rate 91 mL/min (>60); Est Glom Filt Rate - Afr Amer 110 mL/min (>60); Glucose 194 mg/dL (74-106); Sodium Level 141 mmol/L (136-145)
[2019-05-06 07:32] VITALS: BP 126/66; PULSE 83; RESP 16; TEMP 36.6; O2SAT 96
--- NOTE | 2019-05-06 07:39 | DCINST_ITS ---
Discharge Diet: No Restrictions Call your doctor if you observe: Fever of 101 or Higher, Shortness of breath, Chest pain Additional Instructions: Begin daily showering warm water antibacterial soap postop day #3 and then daily. Change dressing daily until no drainage for 2 consecutive days then may leave open to air. Follow hip precautions as reviewed by hospital physical therapist. Call with any concerns Allergies/Adverse Reactions: Allergies etodolac [From Lodine] Allergy (Verified 05/05/19 05:43) Rash metaxalone [Metaxalone] Allergy (Verified 05/05/19 05:43) Rash Medications to take at Discharge Cetirizine HCl [Zyrtec] 10 mg PO QHS 09/09/13 acetaminophen 500 mg tablet 500 mg PO Q6H PRN 02/02/19 atorvastatin 40 mg tablet 40 mg PO DAILY 02/02/19 Mv-Mn/Folic Acid/Calcium/Vit K [Women's 50 Plus Multivit Tab] 1 ea PO DAILY 02/24/19 tramadol 50 mg tablet 50 mg PO Q8H PRN #50 tab 04/22/19 Docusate Sodium [Stool Softener] 100 mg PO PRN PRN 04/29/19 Primary Care Physician: Alf Ann DO [Primary Care Provider] - Test Results: Test results from this visit will be discussed in further detail at your follow- up appointment, if applicable. Please Follow Up With: Jesse Porras DO - 2Weeks
--- NOTE | 2019-05-06 07:41 | DS.PCM_ITS ---
Discharge Date and Diagnosis Date of Admission: 05/05/19 Date of Discharge: 05/06/19 Hospital Course and Treatment Summary of Care Provided: The patient is a 59 year old F patient with long-standing history of severe [left] hip DJD who is failed conservative treatment. Patient underwent left total hip arthroplasty day of admission. Patient did receive pre-and postoperative antibiotics which were discontinued within 23 hours postoperatively. Patient did receive spinal anesthesia and postoperatively her pain was controlled with both IV and p.o. pain medication. Patient did receive 2 g of tranexamic acid. Her hemoglobin and hematocrit were monitored postoperati vely as well as her vital signs and she did not require any blood transfusion. she did have a hollingsworth catheter placed which was removed in the morning of POD #1 .Dressing will be changed daily beginning postop day #3 before shower will be removed and replaced after. Pt was started on Eliquis 2.5 mg twice daily postop day #1 for which will continue for 3 weeks post hospital discharge . Patient was seen by physical therapy was ambulating the halls well. patient will be discharged home with home health group home physical therapy will follow-up in the office in 2 weeks. No intrahospital complications. - Physical Exam General: Alert, Oriented x3, Cooperative, No apparent distress Extremities: - - Dressing clean dry and intact compartment soft neurovascular intact EHL tibialis anterior gastrocsoleus intact sensation light touch 2/4 pedal pulse Vital Signs Temp Pulse Resp BP Pulse Ox 97.8 F 83 16 126/66 H 96 05/06/19 07:32 05/06/19 07:32 05/06/19 07:32 05/06/19 07:32 05/06/19 07:32 Oxygen Flow Rate (L/min) 6 Oxygen Delivery Method Room Air Weight: 191 lb 5.78 oz Body Mass Index (BMI) 36.1 Intake and Output for Last 24 Hours 05/04/19 05/05/19 05/06/19 23:59 23:59 23:59 Intake Total 3046.66 / 3046.66 926.67 / 926.67 Output Total 2800 / 2800 700 / 700 Balance 246.66 / 246.66 226.67 / 226.67 Laboratory Tests Past 24 Hrs 05/06/19 05/06/19 05:42 05:42 WBC 20.5 H RBC 4.10 L Hgb 11.7 L Hct 36.9 L MCV 90.0 MCH 28.5 MCHC 31.7 L RDW Std Deviation 43.4 RDW Coeff of Natalie 13.2 Plt Count 210 MPV 11.2 Sodium 141 Potassium 4.0 Chloride 107 Carbon Dioxide 27.0 Anion Gap 7 BUN 10 Creatinine 0.70 Estim Creat Clear Calc 66.10 Est GFR (MDRD) Af Amer 110 Est GFR (MDRD) Non-Af 91 BUN/Creatinine Ratio 14.2 Glucose 194 H Calcium 8.6 Discharge Diet: No Restrictions Call your doctor if you observe: Fever of 101 or Higher, Shortness of breath, Chest pain Home Medications: Medications to take at Discharge Cetirizine HCl [Zyrtec] 10 mg PO QHS 09/09/13 acetaminophen 500 mg tablet 500 mg PO Q6H PRN 02/02/19 atorvastatin 40 mg tablet 40 mg PO DAILY 02/02/19 Mv-Mn/Folic Acid/Calcium/Vit K [Women's 50 Plus Multivit Tab] 1 ea PO DAILY 02/24/19 tramadol 50 mg tablet 50 mg PO Q8H PRN #50 tab 04/22/19 Docusate Sodium [Stool Softener] 100 mg PO PRN PRN 04/29/19 Primary Care Physician: Alf Ann DO [Primary Care Provider] - Please Follow Up With: Jesse Porras DO - 2Weeks Additional Instructions: Begin daily showering warm water antibacterial soap postop day #3 and then daily. Change dressing daily until no drainage for 2 consecutive days then may leave open to air. Follow hip precautions as reviewed by hospital physical therapist. Call with any concerns Medical Necessity - Tobacco Use Smoking Status: Current every day smoker Tobacco Use: Cigarettes Meaningful Use Info Meaningful Use Diagnoses (Choose all that apply): None applicable
[2019-05-06] MEDS: Multivitamins,Ther W-Minerals Tablet 1 TABLET PO (07:45)
--- NOTE | 2019-05-06 10:30 | CASEMGMT ---
RADHA GALVAN FOXING CUTTING MACHINE OPERATOR CM to room to meet with patient for initial transition planning/care coordination assessment. RADHA GALVAN introduced self and role at [facility]. Pt voices understanding and consents to assessment at this time. Pt resting in bed in no distress at this time. Pt is A/O at this time and answers all questions appropriately. Care providers, pharmacy, and demographics verified/updated at this time. PCP: Seth Specialists: [facility], Elisa Horne--associate sales in [place] Preferred Pharmacy: [facility] [place] Insurance: [employer] [facility] Prescription Benefit: Yes Living Will/HPOA: Has both LW and HCPOA, who is her Cristhian. LNOK: . Has 2 adult children and 2 step-children Living Arrangements: Lives with her in 2-story home. Their youngest son is handicap and lives with them. Pt states he is functional and can do most of his care. He just cannot manage on his own. States upstairs has bedroom and bathroom and has BSC for on the main floor during the day. Pt states her works 12-hr days. Her sister from [place] is coming to stay with her until Novermber and will assist her as needed. Was independent prior to surgery. Transportation: Pt states drove prior to surgery. or sister will provide transportation. DME: States has the following DME: tub bench/shower chair, BSC, raised toilet seat, cane, rails/grab bars, hand held shower, 2 walkers (one for each floor of her home), rollator. Has w/c available if needed. Pt states no need for further DME at this time. HHC/SNF: No history of SNF. Has used [facility] in the past. Discussed options at discharge, including HHC vs OP therapy. Pt wishes to return home with HHC. Pt given list of local HHC agencies and she states her first choice is [facility]. Pt states has no concerns with going home at time of discharge. She states she already has a follow-up appt made with Dr Nova in a couple of weeks. CM to follow for any further discharge planning/needs. Pt voices no further concerns/needs at this time. Advised pt to ask for CM if any further questions/concerns/needs arise. Voices understanding. PLAN: Home w/HHC. Call placed to Selena @ [facility] and referral made. Ryashawn MAGAÑA RN CM
[2019-05-06] MEDS: APIXABAN 2.5 MG TABLET PO (10:50)
[2019-05-06] MEDS: Senna/Docusate Sodium 1 Tablet 2 TABLET PO (10:50)
--- NOTE | 2019-05-06 12:29 | CASEMGMT ---
POA form scanned in to summary tab of Cristhian reveles is pt's POA. There is not a separate LW document, however the LW provision is signed in the POA form. YESSI Morrison
[2019-05-06 13:54] VITALS: BP 127/70; PULSE 81; RESP 16; TEMP 36.8; O2SAT 96
== END 2019-05-06 14:15 | disposition home or self-care (01) | DRG 470 ==
LOC: ACINP 05:28 → MS3 05:51
PROVIDERS: Anesthesiology; Admitting Provider Orthopaedic Surgery; Family Provider Family Medicine; PCP Family Medicine; Referring Provider Orthopaedic Surgery; Visit Provider Orthopaedic Surgery
PROC: 0SRB0JZ Replacement of Left Hip Joint with Synthetic Substitute, Open Approach (ICD-10-PCS; CPT 27130; principal; 2019-05-05 07:05)
DX: M16.12 Unilateral primary osteoarthritis, left hip (principal); Z79.899 Other long term (current) drug therapy; I34.1 Nonrheumatic mitral (valve) prolapse; E78.00 Pure hypercholesterolemia, unspecified; G47.30 Sleep apnea, unspecified; M47.9 Spondylosis, unspecified; F17.210 Nicotine dependence, cigarettes, uncomplicated
CPT/HCPCS: 36415; 73502; 80048; 82962; 85027; 87081; 97110; 97162; 97166; 97530; 97535; 99406; C1776; J7120; J2405

== ENCOUNTER → 2019-05-13 | Outpatient (CLI) | payer MEDICARE, SELFPAY ==
[2019-05-13 09:52] VITALS: BMI 36.1
== END | disposition home or self-care (01) ==
LOC: LABSPEC 13:47
PROVIDERS: Family Provider Family Medicine; PCP Family Medicine; Referring Provider Orthopaedic Surgery; Visit Provider Orthopaedic Surgery
DX: R19.7 Diarrhea, unspecified (principal)
CPT/HCPCS: 87493

== ENCOUNTER → 2019-08-03 09:22 | Outpatient (CLI) | payer MEDICARE, SELFPAY ==
[2019-06-15 09:59] VITALS: BMI 36.1
--- NOTE | 2019-08-03 09:24 | RAD_ITS ---
STUDY: X-RAY - PELVIS REASON FOR EXAM: Female, 59 years old. Postop follow-up TECHNIQUE: 2 AP images. COMPARISON: Pelvis, May 05, 2019. FINDINGS: There is a non-specific bowel gas pattern. Normal visualized soft tissue structures. Normal bilateral iliac wings, sacroiliac joints and visualized sacrum. Normal visualized bilateral superior and inferior pubic rami. Normal pubic symphysis. There are surgical anchors in the symphysis pubis. Question bladder sling procedure. Normal ischial tuberosities. Normal visualized right femoral head. Normal right acetabulum. Normal right hip joint. Left total hip arthroplasty. The prosthetic components are intact and articulate normally with each other. There is no fracture or loosening from the underlying bone. The skin clips along the lateral hip are no longer present. RAD/Pelvis 1 or 2 Views IMPRESSION: Removal of the surgical clips in the overlying soft tissues and left hip. Remainder of the findings appear unchanged from May 05, 2019. Electronically Signed: Deshawn Abbasi DO at 16:50 EST Tel [phone], Service support ,
== END ==
PROVIDERS: Family Provider Family Medicine; PCP Family Medicine; Referring Provider Orthopaedic Surgery; Visit Provider Orthopaedic Surgery
DX: M25.552 Pain in left hip (principal)
CPT/HCPCS: 72170

== ENCOUNTER → 2020-05-11 14:42 | Outpatient (CLI) | payer MEDICARE, SELFPAY ==
[2019-08-03 09:50] VITALS: BMI 36.1
--- NOTE | 2020-05-11 14:43 | BI_ITS ---
MAMMOGRAPHY - BILATERAL SCREENING REASON FOR EXAM: Female, 60 years old. Routine annual screening examination. PERTINENT HISTORY: Mother with breast cancer. TECHNIQUE: Digital bilateral breast mando (3D mammographic acquisition) in the CC and MLO projections. 2-D mediolateral oblique (MLO) and craniocaudad (CC) views of both breasts were obtained. CAD: Full Field Digital Mammography with Computer Added Detection was performed. COMPARISON: Comparison is made with prior study dated 07/11/2018 and 06/18/2017. FINDINGS: Breast Composition: The breasts are almost entirely fatty. There are no dominant masses or suspicious calcifications. There is a 8.6 mm x 8 mm well-defined nodule in the axillary region of the left breast most likely representing a small lymph node. Correlation with ultrasound is recommended. Stable benign-appearing bilateral axillary lymph nodes. No other significant abnormalities are identified. BI/SCREEN MAMM (CAD) W/MANDO BILAT IMPRESSION: 8.6 mm x 8 mm well-defined nodule in the axillary region of the left breast as described most likely representing a small lymph node. Correlation with ultrasound is recommended. ASSESSMENT CATEGORY: BIRADS Category 0: Incomplete. Need additional imaging evaluation. A letter regarding these results will be sent to the patient by the facility within 30 days. Approximately 10% of breast cancers are not detected by mammography. A normal mammogram should not delay biopsy of a clinically suspicious abnormality. [id number] Electronically Signed: Willem Velasquez, at 15:43 EDT , Service support ,
== END ==
PROVIDERS: PCP Student in an Organized Health Care Education/Training Program; Referring Provider Student in an Organized Health Care Education/Training Program; Visit Provider Student in an Organized Health Care Education/Training Program
DX: Z12.31 Encounter for screening mammogram for malignant neoplasm of breast (principal)
CPT/HCPCS: 77063; 77067

== ENCOUNTER → 2020-05-25 13:53 | Outpatient (CLI) | payer MEDICARE, SELFPAY ==
[2019-08-03 09:50] VITALS: BMI 36.1
--- NOTE | 2020-05-25 13:56 | US_ITS ---
STUDY: ULTRASOUND BREAST - LEFT REASON FOR EXAM: Female, 60 years old. Abnormal screening mammogram. TECHNIQUE: Axial and longitudinal images of the LEFT breast were performed with a high resolution ultrasound transducer. # OF IMAGES: 127 COMPARISON: Comparison is made with prior mammogram dated 05/11/2020. FINDINGS: LEFT Breast: There is a 5 mm x 5 mm x 5 mm well-defined hypoechoic nodule with a central echogenic density suggestive of a benign appearing lymph node. US/Breast Limited Unilateral IMPRESSION: The mammographic abnormality corresponds to a 5 mm x 5 mm x 8 mm benign appearing lymph node. ASSESSMENT CATEGORY: BIRADS Category 2: Benign. A letter regarding these results will be sent to the patient by the facility within 30 days. Electronically Signed: Willem Velasquez, at 15:11 EDT , Service support ,
== END ==
PROVIDERS: PCP Student in an Organized Health Care Education/Training Program; Referring Provider Student in an Organized Health Care Education/Training Program; Visit Provider Student in an Organized Health Care Education/Training Program
DX: R92.8 Other abnormal and inconclusive findings on diagnostic imaging of breast (principal)
CPT/HCPCS: 76642

== ENCOUNTER 2020-12-05 13:14 | Emergency (ER) | payer MEDICARE, SELFPAY ==
[2019-08-03 09:50] VITALS: BMI 36.1
[2020-12-05 13:15] VITALS: BP 136/80; PULSE 105; RESP 20; TEMP 36.2; O2SAT 96; BMI 40.0
--- NOTE | 2020-12-05 13:53 | CT_ITS ---
STUDY: CT ABDOMEN AND PELVIS WITHOUT CONTRAST REASON FOR EXAM: Female, 60 years old. Left flank pain RADIATION DOSAGE (If Supplied By Facility): CTDIvol = ( 23.15 ) mGy, DLP = ( 1133.78 ) mGycm TECHNIQUE: Transaxial images were obtained from the dome of the diaphragm to the symphysis pubis without oral contrast, and without intravenous contrast. Sagittal and coronal images were reconstructed. Individualized dose optimization techniques were used for this CT. COMPARISON: None. FINDINGS: Calcified left hilar lymph nodes and calcified granulomas in the left lower lobe. Coronary artery calcification. There is decreased attenuation of the liver consistent with steatosis. Normal gallbladder and extrahepatic biliary system. There are multiple benign calcified granulomata of the spleen. There is diffuse atrophy of the pancreas. Normal bilateral adrenal glands. 6.6 mm cyst in the lateral midportion of the left kidney. Stable 2 cm cyst in the mid portion of the left kidney. There are 3 nonobstructive calculi in the lower pole calyx of the left kidney. Mild degree of a left hydronephrosis due to a 3.8 mm calculus at the left ureterovesical junction. There is a small hiatal hernia. Normal small intestine. There are scattered colonic diverticula consistent with diverticulosis. The appendix is visualized and appears normal. There is scattered atherosclerotic calcification of the abdominal aorta, without a demonstrated aneurysm. Normal inferior vena cava. Normal retroperitoneum. Normal urinary bladder. There is a small umbilical hernia containing fat. There are diffuse degenerative changes of the visualized lumbar spine. Status post left total hip replacement. CT/Abdomen/Pelvis without Cont IMPRESSION: 3.8 mm calculus at the left ureterovesical junction causing mild degree of left hydronephrosis. Nonobstructive calculi in the lower pole calyx of the left kidney. Stable left renal cyst. Fatty infiltration of the liver. Electronically Signed: Willem Velasquez MD at 15:20 EDT , Service support ,
--- NOTE | 2020-12-05 13:54 | ED.VIS.GI ---
History of Present Illness Chief Complaint: Flank Pain Informant: Patient - Abdominal Pain/Flank Pain Onset: Today - 4-5 hrs prior to evaluation Context: Sudden Onset Timing: Continuous, Waxes and wanes Quality: Aching Location: Left Flank Current Severity: Moderate Maximum Severity: Severe Worsened by: Nothing Relieved by: Nothing - Nausea/Vomiting/Emesis GI Symptom: Nausea, Vomiting - Diarrhea/Melena/Hematochezia GI Symptom: Negative for: Diarrhea, Melena, Hematochezia Associated Symptoms: Negative for: Dysuria, Frequency, Hematuria, Urgency Narrative: Patient was doing fine this morning, she went to have a bowel movement and urinated and had sudden onset of severe left flank pain, associate with nausea and vomiting, colicky has not gone away, now having chills but no fevers that she knows of. Never had this before. Has a history of appendectomy but no other abdominal surgeries. Prior similar symptoms: No Recent Illness/Hospitalization: No Past Medical History - Allergies and Home Meds Allergies/Adverse Reactions: Allergies etodolac [From Lodine] Allergy (Verified 12/05/20 13:18) Rash metaxalone [Metaxalone] Allergy (Verified 12/05/20 13:18) Rash Primary Care Physician: John Kwon DO [Primary Care Provider] - Smoking Status: Former smoker Review of Systems General: Reports: Chills, Malaise. Denies: Fever, Sweats Eyes: Denies: Visual changes - bilaterally, Diplopia ENT: Denies: Rhinorrhea, Sore throat Cardiovascular: Denies: Chest pain, Palpitations Respiratory: Denies: Dyspnea, Cough, Dyspnea on exertion Gastrointestinal: Reports: Abdominal pain, Nausea, Vomiting. Denies: Diarrhea, Melena, Hematochezia Genitourinary: Denies: Dysuria, Hematuria, Frequency Musculoskeletal: Denies: Back pain - left low/flank, Swelling, Extremity Pain Skin: Denies: Rash, Wounds Neurological: Denies: Headache, Weakness, Numbness Physical Exam Vital Signs/Narrative: Vital Signs Temp Pulse Resp BP Pulse Ox 12/05/20 13:15 97.2 F L 105 H 20 H 136/80 H 96 Inital Vital Signs reviewed: Yes General: Well nourished, Well developed, Obese, Acute Distress - painful Head: Normocephalic, Atraumatic Eyes: Perrl, EOMI ENT: Moist mucous membranes, No rhinorrhea Neck: Supple, Nontender Cardiovascular: Regular rate, Regular rhythm, No murmurs, Tachycardia - mild Respiratory: No distress, CTA bilaterally, Chest nontender Abdomen: Soft, Nontender - while in severe pain, Nondistended, Normal bowel sounds. Negative for: Pulsatile mass Back: Nontender, Normal Inspection, CVA tenderness - left only Extremities: Nontender, No edema. Negative for: Calf Tenderness Skin: Normal color, No rash, No Trauma Neurological: Alert, Oriented x3, Cranial nerves II-XII grossly intact, Normal Strength, Normal Sensation Psychological: Normal Mood, - - anxious Diagnostic/Tx/Re-eval Impressions Abdomen/Pelvis CT 12/05/20 13:53 IMPRESSION: 3.8 mm calculus at the left ureterovesical junction causing mild degree of left hydronephrosis. Nonobstructive calculi in the lower pole calyx of the left kidney. Stable left renal cyst. Fatty infiltration of the liver. Electronically Signed: Willem Velasquez MD at 15:20 EDT , Service support , 12/05/20 13:53 Abdomen/Pelvis without Cont [CT] Stat Laboratory Results 12/05/20 12/05/20 12/05/20 14:00 14:00 14:00 WBC 9.6 RBC 5.28 Hgb 14.3 Hct 46.2 MCV 87.5 MCH 27.1 MCHC 31.0 L RDW Std Deviation 42.3 RDW Coeff of Natalie 13.2 Plt Count 240 MPV 10.5 Immature Gran % (Auto) 0.300 Neut % (Auto) 92.1 H Lymph % (Auto) 6.9 L Woods % (Auto) 0.2 Eos % (Auto) 0.1 Baso % (Auto) 0.4 Absolute Neuts (auto) 8.9 H Absolute Lymphs (auto) 0.66 L Nucleated RBC % 0 Sodium 138 Potassium 3.7 Chloride 102 Carbon Dioxide 30.0 Anion Gap 6 BUN 11 Creatinine 1.02 Estim Creat Clear Calc 42.66 Est GFR (MDRD) Af Amer 71 Est GFR (MDRD) Non-Af 59 L BUN/Creatinine Ratio 10.8 Glucose 123 H Calcium 9.8 Urine Color Yellow Urine Clarity Sl. Cloudy Urine pH 6.0 Ur Specific [place] 1.020 Urine Protein 30 H Urine Glucose (UA) Normal Urine Ketones 5 H Urine Occult Blood 250 H Urine Nitrite Negative Urine Bilirubin Negative Urine Urobilinogen Normal Ur Leukocyte Esterase 100 H Urine RBC > 100 SEEN Urine WBC 10-25 SEEN Ur Squamous Epith Cells 0-5 SEEN Urine Bacteria 4+ Urine Mucus 0 SEEN - Medical Decision Making Patient symptoms were significantly improved after Toradol, morphine, Zofran, and her pain started coming back prior to discharge. She was able to tolerate oral fluids. CT shows a 3.8 mm UVJ stone, she should be able to pass that with expectant management. I discussed this at home with prescriptions and she is comfortable with that plan, she was given urologic follow-up although I do not think she needs to see them unless she cannot pass the stone in a week's time and she is still controlling the symptoms. We discussed reasons to return such as intractable symptoms, fevers, etc. She was given strainers to go home with, pain medication, and given the ambiguous urinalysis, and empiric antibiotic after sending a culture. It may be abnormal simply because of blood being present in the urine, she does not have a significant leukocytosis, but will cover her for the possibility of an infection anyway. She understands and is comfortable with all that. ED Disposition - Plan for ED Patient: Disposition: Home or Assisted Living Diagnosis: Renal colic on left side, Urolithiasis Instructions: ED Kidney Stone w/ Colic Prescriptions: Ciprofloxacin [Cipro] 500 mg PO BID #14 tab Transmission Status: Pending to [address] Tamsulosin HCl [Flomax] 0.4 mg PO DAILY #7 capsule Transmission Status: Pending to [address] Oxycodone HCl/Acetaminophen [Percocet 5/325] 1 tablet PO Q4H PRN PRN 3 Days #14 tablet PRN Reason: Pain Transmission Status: Received by [address] proMETHazine tablet [Phenergan] 25 mg PO Q6H PRN PRN #14 tab PRN Reason: Nausea Transmission Status: Pending to [address] Referrals: John Kwon DO [Primary Care Provider] - Jane Alvarado MD [STAFF PHYSICIAN] - 1 Week if not improving Additional Instructions: There are several other small stones in your left kidney that are not causing problems right now, that could come down and become stuck, giving you the same symptoms that you have now, or similar.
[2020-12-05] MEDS: Morphine 4 MG/ML Syringe IV ×2 (14:03→17:16)
[2020-12-05] MEDS: Ondansetron 4 MG/2 ML Vial IV (14:03)
[2020-12-05] MEDS: 0.9% Normal Saline 1,000 ML 125 ML IV (14:03)
[2020-12-05] MEDS: Ketorolac 15 MG/ML Vial IV (14:06)
[2020-12-05 14:09] LABS: Absolute Lymphocyte Count 0.66 X10^3/uL (0.83-4.51); Absolute Neutrophil Count 8.9 X10^3/uL (2.0-7.7); Basophil# 0.04 X10^3/uL; Basophil% 0.4 % (0-1); Eosinophil# 0.01 X10^3/uL; Eosinophils% 0.1 % (0-5); Hematocrit 46.2 % (37-47); Hemoglobin 14.3 g/dL (12.0-15.0); Lymphocyte # 0.66 X10^3/ul (4.0); Lymphocyte % 6.9 % (19-41); Mean Corpuscular Hgb 27.1 pg (27.0-32.0); Mean Corpuscular Volume 87.5 fL (81-99); Mean Platelet Vol. 10.5 fl (6.2-12.0); Monocyte# 0.02 X10^3/uL; Monocyte% 0.2 % (0-10); NRBC Flagged by Analyzer 0 % (0-5); Neutrophil # 8.85 X10^3/uL (2.7-7.7); Neutrophil % 92.1 % (47-70); Platelet Count 240 K/mm3 (150-450); RBC Distribution Width CV 13.2 % (11.6-14.6); RBC Distribution Width SD 42.3 fl (35.1-43.9); Red Blood Count 5.28 M/mm3 (4.2-5.4); White Blood Count 9.6 K/mm3 (4.4-11.0)
[2020-12-05 14:16] LABS: Mucous, Urine 0 SEEN /hpf (<or=2+)
[2020-12-05 14:20] LABS: Color, Urine Yellow (Yellow); Glucose, Dipstick Normal (Normal); Ketone-Dipstick 5 mg/dl (Negative); Leukocyte Esterase-Dipstick 100 /ul (Negative); Nitrite-Dipstick Negative (Negative); Occult Blood-Urine 250 /ul (Negative); Protein-Dipstick 30 mg/dl (Negative); Urine Bilirubin Dipstick Negative (Negative); Urine Clarity Sl. Cloudy (Clear); Urine Urobilinogen Normal (Normal)
[2020-12-05 14:23] LABS: Anion Gap 6 (5-15); BUN 11 mg/dL (7-18); BUN/Creat Ratio 10.8 RATIO (10-20); Calcium,Total 9.8 mg/dL (8.5-10.1); Chloride 102 mmol/L (98-107); Creatinine, Serum 1.02 mg/dL (0.55-1.02); EST Glomerular Filtration Rate 59 mL/min (>60); Est Glom Filt Rate - Afr Amer 71 mL/min (>60); Estimated Creatinine Clearance 42.66 ml/min; Glucose 123 mg/dL (74-106); Potassium 3.7 mmol/L (3.5-5.1); Sodium Level 138 mmol/L (136-145)
[2020-12-05 14:35] LABS: Bacteria 4+ /hpf (None Seen); Red Blood Cells-Urine > 100 SEEN /hpf (0-5); Squamous Epithelial Cells - UA 0-5 SEEN /hpf (5-10); White Blood Cells 10-25 SEEN /hpf (0-5)
[2020-12-05 15:46] VITALS: BP 123/61; PULSE 117; O2SAT 93
[2020-12-05 17:15] VITALS: BP 111/54; PULSE 94; RESP 16; O2SAT 100
[2020-12-05] MEDS: Ciprofloxacin 500 MG Tablet PO (17:16)
[2020-12-05 17:19] VITALS: BP 111/54; PULSE 98; RESP 16; O2SAT 96
== END 2020-12-05 17:37 | disposition home or self-care (01) ==
PROVIDERS: Emergency Provider Emergency Medicine; PCP Student in an Organized Health Care Education/Training Program
DX: N20.0 Calculus of kidney (principal); E66.9 Obesity, unspecified; Z90.49 Acquired absence of other specified parts of digestive tract; Z87.891 Personal history of nicotine dependence
CPT/HCPCS: 74176; 80048; 81001; 85025; 87086; 87088; 87186; 96361; 96374; 96375; 96376; 99283; J7030; A4216; J2405

== ENCOUNTER → 2020-12-07 10:12 | Outpatient (CLI) | payer MEDICARE, SELFPAY ==
[2020-12-05 13:15] VITALS: BMI 40.0
--- NOTE | 2020-12-07 10:15 | RAD_ITS ---
STUDY: X-RAY - ABDOMEN/PELVIS REASON FOR EXAM: Female, 60 years old. KUB TECHNIQUE: Single AP view of the abdomen / pelvis. COMPARISON: CT abdomen and pelvis 12/05/2020 Pelvis x-ray 08/03/2019. FINDINGS: Normal visualized lung bases. There is an abundance of fecal material throughout the colon. There is no demonstrated free abdominal air. The recently described stone at the left UVJ is not seen on this radiograph. Normal soft tissue structures. There is a left hip total arthroplasty. There are small metallic devices in the right and left pubic tubercle. Dextrocurvature of the lumbar spine. RAD/Abdomen Single View IMPRESSION: Recently described stone at the left UVJ is not seen on this radiograph. Diffuse constipation. Electronically Signed: Milind Rush MD at 11:04 EDT Tel , Service support ,
== END ==
PROVIDERS: PCP Student in an Organized Health Care Education/Training Program; Referring Provider Urology; Visit Provider Urology
DX: N20.0 Calculus of kidney (principal)
CPT/HCPCS: 74018

== ENCOUNTER → 2021-04-13 15:20 | Outpatient (CLI) | payer MEDICARE, SELFPAY ==
--- NOTE | 2021-04-13 15:22 | CT_ITS ---
STUDY: CT RIGHT LOWER EXTREMITY WITHOUT CONTRAST REASON FOR EXAM: Right knee osteoarthritis, surgical planning. TECHNIQUE: Transaxial CT imaging of the lower extremity was performed. Coronal and sagittal images were reformatted. Individualized dose optimization techniques were used for this CT. COMPARISON: Radiographs 03/27/2021. FINDINGS: Knee: There are marginal osteophytes, subchondral eburnation and joint space narrowing of the medial femorotibial compartment (coronal reconstructions 24-27). There are marginal osteophytes without joint space narrowing of the lateral femorotibial compartment. There are marginal osteophytes and joint space narrowing of the medial aspect of the patellofemoral compartment (sagittal reconstruction 34). Normal proximal tibiofibular articulation. There is a joint effusion. The quadriceps tendon is grossly normal. The patellar tendon is grossly normal. Normal Hoffa''s fat pad. There is a small intra-articular body in the distal popliteus tendon sheath (coronal reconstructions 39, 40). Hip: There is joint space narrowing of the superior medial right hip (coronal reconstruction 48). Ankle: There are anterior osteophytes and mild joint space narrowing at the anterior aspect of the tibiotalar articulation (sagittal reconstruction 30). Normal posterior subtalar and talonavicular articulations. There are posterior and plantar calcaneal enthesophytes. CT/Extremity Lower without Contra IMPRESSION: Right knee osteoarthritis. Electronically Signed: Shashank Burton MD at 11:28 EDT Tel , Service support ,
== END ==
PROVIDERS: PCP Student in an Organized Health Care Education/Training Program; Referring Provider Orthopaedic Surgery; Visit Provider Orthopaedic Surgery
DX: M17.11 Unilateral primary osteoarthritis, right knee (principal)
CPT/HCPCS: 73700

== ENCOUNTER 2021-04-18 05:19 | Day surgery (SDC) | payer MEDICARE, SELFPAY ==
[2021-03-27 09:43] VITALS: BMI 39.6
--- NOTE | 2021-04-07 12:53 | EKG12_ITS ---
Test Reason : PRE OP Blood Pressure : / mmHG Vent. Rate : 099 BPM Atrial Rate : 099 BPM P-R Int : 150 ms QRS Dur : 074 ms QT Int : 348 ms P-R-T Axes : 046 -15 051 degrees QTc Int : 446 ms Normal sinus rhythm Normal ECG Confirmed by HERBERTH JAY, TIERRA ([id number]), editor newspaper GILL CASTREJON ([id number]) on 04/11/2021 8:59:23 AM Referred By: Jesse Porras Confirmed By:TIERRA KEVIN MD
[2021-04-07 15:37] LABS: Absolute Lymphocyte Count 2.04 X10^3/uL (0.83-4.51); Absolute Neutrophil Count 6.9 X10^3/uL (2.0-7.7); Basophil# 0.06 X10^3/uL; Basophil% 0.6 % (0-1); Eosinophil# 0.08 X10^3/uL; Eosinophils% 0.8 % (0-5); Hematocrit 42.5 % (37-47); Hemoglobin 13.5 g/dL (12.0-15.0); Lymphocyte # 2.04 X10^3/ul (0.83-4.51); Lymphocyte % 21.1 % (19-41); Mean Corp Hgb Conc 31.8 g/dL (32-36); Mean Corpuscular Hgb 26.7 pg (27.0-32.0); Mean Corpuscular Volume 84.2 fL (81-99); Mean Platelet Vol. 11.7 fl (6.2-12.0); Monocyte# 0.56 X10^3/uL; Monocyte% 5.8 % (0-10); NRBC Flagged by Analyzer 0 % (0-5); Neutrophil % 71.3 % (47-70); Platelet Count 246 K/mm3 (150-450); RBC Distribution Width CV 14.5 % (11.6-14.6); RBC Distribution Width SD 43.8 fl (35.1-43.9); Red Blood Count 5.05 M/mm3 (4.2-5.4); White Blood Count 9.7 K/mm3 (4.4-11.0)
[2021-04-07 15:53] LABS: Prothrombin Time (Protime)PT. 12.5 SECONDS (11.7-14.9)
[2021-04-07 15:54] LABS: Partial Thromboplast Time 23.5 Seconds (24.1-36.2)
[2021-04-07 16:11] LABS: Magnesium 2.1 mg/dL (1.6-2.6)
[2021-04-07 16:17] LABS: Anion Gap 4 (5-15); BUN 10 mg/dL (7-18); Calcium,Total 9.2 mg/dL (8.5-10.1); Chloride 106 mmol/L (98-107); Creatinine, Serum 0.83 mg/dL (0.55-1.02); EST Glomerular Filtration Rate 74 mL/min (>60); Est Glom Filt Rate - Afr Amer 90 mL/min (>60); Glucose 115 mg/dL (74-106); Potassium 3.5 mmol/L (3.5-5.1); Sodium Level 139 mmol/L (136-145)
[2021-04-09 08:18] LABS: Fructosamine 235 umol/L (0-285)
[2021-04-18] VITALS (15 sets, daily range): BP systolic 110–147; BP diastolic 62–98; PULSE 58–96; RESP 16–18; TEMP 35.8–36.7; O2SAT 95–100; BMI 40.2
[2021-04-18] MEDS: Lactated Ringers 1,000 ML 999 ML IV (06:12)
[2021-04-18] MEDS: Scopolamine 1mg/72hr Patch 1 PATCH TD (06:16)
[2021-04-18] MEDS: Acetaminophen 500 MG Tablet 1000 MG PO ×3 (06:18→21:35)
[2021-04-18] MEDS: Gabapentin 600 MG Tablet PO (06:18)
[2021-04-18] MEDS: Celecoxib 200 MG Capsule 400 MG PO (06:25)
[2021-04-18 07:16] LABS: Bedside Glucose 173 mg/dL (70-110)
[2021-04-18] MEDS: Cefazolin 2 GM in 0.9% Normal Saline 100 ML IV (07:24)
--- NOTE | 2021-04-18 07:29 | HP.PCM_ITS ---
History and Physical Date of Admission: 04/18/21 Date of Service: 03/27/21 MR#:[id number]:[id number]: JONO DURAN [facility] #:[id number] Provider:Dr. Jesse Porras DOAge/Sex: 61/F [facility] [place] Intake Vital Signs 03/09/21 14:08 03/27/21 09:43 Height 0 in 5 ft 1.42 in Weight: 213 lb BMI 39.6 Intake Visit Reasons: Bilat knees Accompanied by: Self Is patient in pain?: Yes Allergies etodolac [From Lodine] Allergy (Verified 03/27/21 09:36) Rash metaxalone [Metaxalone] Allergy (Verified 03/27/21 09:36) Rash Medications cetirizine 10 mg PO QHS 09/09/13 [History Confirmed 03/27/21] acetaminophen 500 mg tablet 500 mg PO Q6H PRN 02/02/19 [History Confirmed 03/27/21] atorvastatin 40 mg tablet 40 mg PO DAILY 02/02/19 [History Confirmed 03/27/21] cz-nuq-sfmkn-calcium carb-K1 1 ea PO DAILY 02/24/19 [History Confirmed 03/27/21] docusate sodium 100 mg PO PRN PRN 04/29/19 [History Confirmed 03/27/21] cholecalciferol (vitamin D3) 50 mcg (2,000 unit) capsule 50 mcg PO DAILY 03/27/21 [History Confirmed 03/27/21] pantoprazole 20 mg tablet,delayed release 20 mg PO DAILY 03/27/21 [History Co nfirmed 03/27/21] [facility] Medical History (Updated 03/27/21 @ 11:[address] Jesse Porras DO) Heart murmur Mitral valve prolapse Surgical History (Updated 03/27/21 @ 10:09 by Estephanie Lee) H/O arthroscopy of right knee H/O knee surgery H/O wrist surgery History of ankle surgery History of appendectomy History of back surgery History of bilateral carpal tunnel release History of bladder suspension procedure History of hip surgery Hx of tonsillectomy Family History (Updated 03/27/21 @ 09:35 by Estephanie Lee) Father Heart disease Cancer of kidney Lung cancer Mother Myocardial infarction Breast cancer Social History (Updated 03/27/21 @ 09:36 by Estephanie Lee) household members: spouse and children housing: house current occupational status: disabled pets and animals: No Smoking Status: Former smoker alcohol intake: current alcohol intake frequency: holidays/special occasions only substance use type: does not use what type of physical activity do you participate in: additional details: aquatic exercise do you feel safe at home: Yes HPI Bilat knees Details: Parts of this documentation were recorded by a scribe, this documentation accurately reflects the service provided and the decisions made by me, Dr. Jesse Porras, DO 03/27/21 0749. JONO DURAN is a 61 year old F here today for right knee pain. Patient states she has been having pain for years. Patient did plan on having a right TKR last year, however d/t COVID she waited. Patient states she would like a knee replacement this year. Patient is having her knee lock up as well as giving out. Pain is constant. Reports popping, clicking and snapping of her knee. Pain: anterior medial. Reports stiffness. Denies any numbness, and tingling. Denies any injections and recent procedures with her right knee. Patient has been taking Tylenol for pain control. Last right knee x-ray: 02/02/2019. Patient had left total knee replacement performed by ice and is very happy with that if her right knee feels like her left 1 she would be very happy. [facility] Reports system reviewed and no additional complaints, except as documented and Reports as per HPI Ortho Exam General General: Yes no acute distress and Yes well groomed Neurologic: Yes alert and Yes oriented x3 Psychologic: Yes reasonable and appropriate Right Knee Skin/Wound: No erythema, No ecchymosis and No swelling Homans Sign: No Knee ROM: No ROM-Extension -20 to 0 (-3) and No ROM-Flexion 0-140 Stability: NML: Anterior Drawer and NML: Christo and 1+: Valgus 30 Patella Translation: 1 Apprehension with Lateral Translation: No Patella Grind: Yes KNEE: no joint effusion varus deformity that is fixed. Left Knee Patella Translation: 1 Coding Level of Care Code Off vis,est,level 3 Diagnoses Right knee DJD M17.11 Osteoarthritis type: primary Assessment and Plan Assessment and Plan (1) Right knee DJD: Status: Acute Qualifiers: Osteoarthritis type: primary Qualified Code(s): M17.11 - Unilateral primary osteoarthritis, right knee Plan - Dr. Jesse Porras DO: Personally reviewed the patient's medical history, medications, surgeries and recent exams if available. Obtained X-rays of patient's right knee. Personally reviewed X-rays. See chart for further details. Discussed and explained the benefits of the IOVERA treatment. Patient would like to proceed with getting approval from her insurance company for the IOVERA. Will need medial clearance from her PCP for the total knee replacement. Risks, benefits and alternatives of surgery reviewed including risk of bleeding, infection, nerve, artery and/or tissue damage continued pain or symptoms and expected post-operative course. All questions answered. Patient in agreement of plan. Follow up in 2 weeks post op or sooner if pain, swelling, numbness or associated symptoms, or concerns develop. Plan Details Other Orders: Orders: Knee 4 or More Views Today M25.561 03/27/21 1137<Electronically signed by Jesse Porras DO>Date ___ Jesse Porras DO I have re-examined the patient. There are no clinical changes since date of exam
--- NOTE | 2021-04-18 07:30 | KNEE_PTH ---
PATIENT: JONO DURAN LOC: [facility] [place] U#:[id number] AGE/SX: 61/F ROOM: RE04/18/[address]: Dr. Jesse Porras DO : 1960 BED: DIS: 04/19/2021 SPEC #: [id number] RECD: 04/18/21 10:43 STATUS: JUDITH RETatyana #: [id number] ARCHIE: 04/18/21 07:[address]: Jesse Porras DEPT: SURGICAL PATHOLOGY RECD BY: Marielle Banda ENTERED: 04/18/21 10:58 SP TYPE: TOTAL KNEE OTHR DR: Dr. John Kwon DO Tissues: Knee, NOS Procedures: Decalcification bone/plaque Surgery Specimen Level IV HEADER OPERATION: ERAS, total knee replacement robotic arm assist PRE-OP DIAGNOSIS: Right knee DJD, osteoarthritis TISSUE SUBMITTED: Debrided bone and tissue right knee MICROSCOPIC DIAGNOSIS Bone and soft tissue, right knee, total knee replacement/resection: Pieces of bone with degenerative osteoarthritic changes. Fibroadipose tissue and fibroconnective tissue. VIOLETA:cornelius 04/21/2021 MICROSCOPIC DESCRIPTION Slides are reviewed. GROSS DESCRIPTION Received is one container designated debrided bone and tissue right knee. The specimen consists of a piece of bone measuring 7.5 x 5 x 1.5 cm. The articular surface is consistent with tibial condyle. The articular surface shows an area of erosion, eburnation and osteophyte formation. Also present in the specimen container is a piece of soft tissue measuring 2.5 x 2 x 0.7 cm. Drier Tender Naphthalene sections are submitted in two cassettes as follows: 1 - soft tissue, 2 - bone after decalcification. Entire soft tissue is submitted. / VIOLETA:cornelius 04/18/21 TC: 5 [facility]: [id number], [id number]
[2021-04-18] MEDS: Lactated Ringers 1,000 ML 100 ML IV (08:00)
[2021-04-18] MEDS: dexAMETHasone 10 MG/ML Vial IV (08:00)
[2021-04-18] MEDS: Betamethasone/Betamethasone 30 MG/5 ML Vial (09:15)
[2021-04-18] MEDS: 0.9% Normal Saline (Pres. free 10 ML Vial ×2 (09:15)
[2021-04-18] MEDS: Bupivacaine 0.5% PF 10 ML VIAL (09:15)
[2021-04-18] MEDS: Epinephrine (1 mg/ml) 1 MG/ML VIAL (09:15)
[2021-04-18] MEDS: Lactated Ringers 1,000 ML 125 ML IV ×2 (09:45→21:25)
--- NOTE | 2021-04-18 10:09 | OP.PCM_ITS ---
Report of Operation Date of Procedure: 04/18/21 Description of Surgical Findings:: Preoperative diagnosis: Right knee DJD Postoperative diagnosis: Same Procedure: Left total knee arthroplasty CT guided Robotic Assisted Implant: [place] triathlon press fit, femoral component size 3, tibial baseplate size 3, asymmetric patella size 29 cemented, polyethylene X3 size 9 CS Anesthesia: Spinal with adductor canal block Tourniquet time: 15 minutes at 300 mmHg Complications: None Condition: Stable to PACU Estimated blood loss: 125 cc Indication for procedure: This is a 61-year-old female with long standing degenerative joint disease of the knee who has failed conservative treatment and wished to proceed with elective total knee arthroplasty. Risk benefits and alternatives were reviewed including; risk of bleeding, infection, nerve artery and tissue damage, continued pain, postoperative stiffness, venous thromboembolism, need for postoperative rehabilitation, mechanical feel to the knee, and expected postoperative course. The operative CT and templating was performed with component sizing Procedure: The patient was met in the preoperative holding area. The operative extremity was identified by both patient and physician and was marked. Patient was met by anesthesia. An adductor canal block was placed by anesthesia postoperatively the patient was brought back to the operating room on a wheeled cart and transferred to the operating table in the supine position. Anesthesia was started. A well-padded tourniquet was placed on the operative extremity. The patient was prepped and draped in the usual sterile fashion. A timeout was called to ensure the proper patient procedure and extremity were being contemplated. An Esmarch was used to exsanguinate the extremity. The tourniquet was inflated. A 10 blade scalpel was used to make a midline incision down through the skin and subcutaneous tissue. Skin retractors placed. Bovie was used to perform meticulous hemostasis. full-thickness flaps were elevated medial and lateral along the joint capsule. A deep blade scalpel was used to perform a medial parapatellar arthrotomy. The knee was brought to full extension. A Bovie was used to release the soft tissues off the most proximal aspect of the medial tibial plateau, a three-quarter inch curved osteotome was also used for this process. The infrapatellar fat pad was excised. The superior fat pad was excised partially anteriorolateraly and portion the anterioromedial pad was elevated from the femur. At this point our intra- articular femoral array was placed of a 45 degree angle proximal and posterior to the medial epicondyle. Our tibial array was placed greater than 1 hands breath below the incision at a 20 degree angle stab incisions were used for this case were attached and checked with the robotic software. Tourniquet was let down. At this point registration falcon were taken throughout the knee as well as checkpoints placed in the femur and tibia once the knee was registered then tensioned the medial and lateral ligaments in extension and 90 degrees of flexion. We then used these numbers to adjust our components within parameters to balance the knee in both flexion and extension once this was done on our monitor we then proceeded with using the robotic arm to make our tibial plateau cut and anterior posterior and chamfer cuts and distal on the femur we then trialed, at this point patient continued to have incomplete extension of note she did have a preoperative flexion contracture of about 10 degrees. We did consider this in making the distal femoral cut slightly more however balancing required us to recut an additional 1.5 mm off the distal femur we used the robotic arm to perform this and recut the chamfer cuts and anterior cut at this point achieved the desired plan with a well-balanced knee with the use of a 9 mm polyethylene insert. Lug holes were drilled in the femur the tibia preparation was completed with a fin punch and the patella was prepared by first using a caliper to ensure sufficient bone stock and a patellar reamer to remove the desired amount of bone locals were drilled for an asymmetric poly-. We then brought the knee through range of motion with excellent patellar tracking. We thoroughly irrigated the knee with a trial components were removed a posterior capsular injection with her standard cocktail was performed the aqua Mantis was also used to aid in hemostasis. Betadine rinse was allowed to sit and washed out components were press-fit into place, at this time the patellar component was not sitting flush we checked it with a trial which would sit flush and then tried it again with not complete surface contact we decided to remove the component and cemented into place using standard technique. We then waited to the cemented hardened with a clamp Aricept rinse was then used followed by sever al more rate liters of irrigation after it was allowed to sit. Joint capsule was closed with #1 Ethibond [id number] followed by Vicryl in the subcutaneous tissues staple in the skin arrays and checkpoints were removed prior to closure all counts were correct stab incisions were closed with a stable standard dressing in the form of Mepilex for the main incision Xeroform 4 x 4 and Tegaderm over pin site holes. Thigh-high MARCK hose applied over top of dressing. Patient tolerated the procedure well and was directed to PACU in stable condition no intraoperative complications
[2021-04-18 10:41] LABS: Bedside Glucose 133 mg/dL (70-110)
--- NOTE | 2021-04-18 10:55 | RAD_ITS ---
STUDY: X-RAY - RIGHT KNEE REASON FOR EXAM: Female, 61 years old. Post op -- in PACU TECHNIQUE: 2 view(s) of the knee. COMPARISON: Comparison is made with prior study 03/27/2021. FINDINGS: Normal visualized distal femur. Normal visualized proximal tibia and fibula. Normal proximal tibiofibular articulation. The patient is status post right knee replacement. There is good alignment. Postoperative soft tissue changes. RAD/Knee 1 or 2 Views IMPRESSION: Status post right total knee replacement. There is good alignment. Postoperative soft tissue changes. Electronically Signed: Willem Velasquez MD at 15:01 EDT , Service support ,
[2021-04-18] MEDS: Cefazolin 1 GM/50 ML BAG IV ×2 (11:42→21:34)
[2021-04-18] MEDS: oxyCODONE 5 MG Tablet PO ×2 (12:16→18:22)
--- NOTE | 2021-04-18 12:44 | DCINST_ITS ---
Discharge Instructions Diet Discharge Diet: No restrictions Activity Discharge Activity: May Not Drive Weight Bearing Status: Weight bearing as tolerated Keep extremity elevated above heart level: Operative Extremity Additional Activity Instructions:: Ice and elevate one week while not ambulating, especially the first 72 hours. Ambulation is encouraged. Weightbearing as tolerated. Use assistive devise for stability. Encourage FULL knee extension and flexion 1 time EVERY time you get up and down and MULTIPLE times per day. No showering 72 hours after surgery. Begin showering postop day #3. Remove the dressing prior to shower and gently wash with warm water and antibacterial soap then pat dry and place abdominal pad (or plain gauze) and MARCK hose over top. This is to be done daily. Do not submerge for 3 weeks. If not showering daily after the initial 72 hours then you must clean incision and change dressing daily. Do not allow animals near the incision area. Keep clean. Follow anticoagulation recommendations as prescribed. Do not take any NSAIDs while on blood thinner. Do not take any additional narcotic pain medication other than what was prescribed on your surgery day without discussing with physician. Narcotic medication can be addictive. Do not drink alcohol while taking narcotics. Start physical therapy. If you are not currently scheduled for physical therapy or you are unsure of appointment time please call office [facility] to arrange. Call Dr. Porras with any concerns. Dressing / Incision Call your doctor if you observe: Fever of 101 or Higher, Shortness of breath and Chest pain Change Dressing in: 3 days Remove Dressing in: 3 days Cleanse incision/area with: Soap & Water Follow Up Care Please Follow Up With: Clem Leung PA When: 2 weeks Test Results: Test results from this visit will be discussed in further detail at your follow-up appointment, if applicable. Discharge Plan Admission Attending Provider: Jesse Porras Primary Care Provider: John Kwon Discharge Orders/Prescriptions Prescriptions: New acetaminophen 500 mg Tablet 1,000 mg PO Q8 17 Days Qty: 100 RF: 0 oxycodone 5 mg Tablet 5 - 10 mg PO Q4H PRN PRN (Reason: Pain Score 4-10) 5 Days Qty: 60 RF: 0 Eliquis 2.5 mg tablet 2.5 mg PO BID Qty: 28 RF: 0 cephalexin 500 mg capsule 1,000 mg PO BID Qty: 4 RF: 0 No Action acetaminophen [Tylenol Extra Strength] 500 mg tablet 500 mg PO Q6H PRN (Reason: Pain) RF: 0 atorvastatin [Lipitor] 40 mg tablet 40 mg PO DAILY RF: 0 cholecalciferol (vitamin D3) 50 mcg (2,000 unit) capsule 50 mcg PO DAILY RF: 0 pantoprazole 20 mg tablet,delayed release (DR/EC) 20 mg PO DAILY RF: 0 cetirizine 10 MG tablet 10 mg PO PRN PRN (Reason: ALLERGIES) RF: 0 multivitamin Tablet 1 tab PO DAILY RF: 0 Other Ambulatory Orders: 12 Lead EKG (Routine) Timeframe: [id number] Facility: [facility] - Location: Cardiovascular Services Ordered By: Dr. Jesse Porras Referrals / Follow Up: John Kwon DO [Primary Care Provider] - Disposition Disposition (needs filled in before D/C Order can be placed): Home, Self Care
[2021-04-18] MEDS: Ondansetron 4 MG/2 ML Vial IV (14:37)
[2021-04-18] MEDS: Tamsulosin HCl 0.4 MG Capsule PO (18:05)
--- NOTE | 2021-04-18 19:12 | SUR.PHASEII ---
Patient VSS. Patient is in Phase 2. Has not been able to void. Janina GARCIA straight cath prior after unsuccessful void per order; see documentation. This nurse assumed care. Continuing to monitor with bladder scans and encouraging PO fluids along with Maintaince IV ordered. Dr. Delgado was updated by pervious nurse and would like patient to be discharged today as long as they can void. Will continue to monitor. (Patient ambulated to the bathroom with SBA and walker. Pain is tolerable at 3/10. Daughter at bedside).
--- NOTE | 2021-04-18 20:35 | SUR.PHASEII ---
Inpatient nurse to call Dr. Porras with questions and concerns.
[2021-04-19 02:58] VITALS: BP 101/49; PULSE 91; RESP 16; TEMP 36.7; O2SAT 92
[2021-04-19] MEDS: oxyCODONE 5 MG Tablet PO (03:10)
[2021-04-19] MEDS: Lactated Ringers 1,000 ML 125 ML IV (06:16)
[2021-04-19] MEDS: Cefazolin 1 GM/50 ML BAG IV (06:17)
[2021-04-19] MEDS: APIXABAN 2.5 MG TABLET PO (06:20)
[2021-04-19] MEDS: Acetaminophen 500 MG Tablet 1000 MG PO (06:20)
[2021-04-19 07:52] VITALS: BP 96/57; PULSE 73; RESP 16; TEMP 36.5; O2SAT 95
== END 2021-04-19 09:12 | disposition home or self-care (01) ==
LOC: SDC 05:20 → AC 05:20 → MS3 20:55
PROVIDERS: Anesthesiology; PCP Student in an Organized Health Care Education/Training Program; Referring Provider Orthopaedic Surgery; Visit Provider Orthopaedic Surgery
PROC: 0SRC0JZ Replacement of Right Knee Joint with Synthetic Substitute, Open Approach (ICD-10-PCS; CPT 27447; principal; 2021-04-18 07:00)
DX: M17.11 Unilateral primary osteoarthritis, right knee (principal); Z87.891 Personal history of nicotine dependence; E78.00 Pure hypercholesterolemia, unspecified; K21.9 Gastro-esophageal reflux disease without esophagitis; Z79.899 Other long term (current) drug therapy; Z87.19 Personal history of other diseases of the digestive system; Z86.79 Personal history of other diseases of the circulatory system; G47.30 Sleep apnea, unspecified; R01.1 Cardiac murmur, unspecified; I34.1 Nonrheumatic mitral (valve) prolapse; Z82.49 Family history of ischemic heart disease and other diseases of the circulatory system; Z01.818 Encounter for other preprocedural examination
CPT/HCPCS: 01402; 27447; 64447; S2900; 36415; 73560; 80048; 82962; 82985; 83735; 85025; 85610; 85730; 86850; 86900; 86901; 87081; 87426; 88305; 88311; 93005; 97162; 99251; 99406; C1776; C9803; J7120; A4216; G0463; J0702; J2405; J3490

== ENCOUNTER → 2021-06-07 15:13 | Outpatient (CLI) | payer MEDICARE, SELFPAY ==
--- NOTE | 2021-06-07 15:14 | BI_ITS ---
MAMMOGRAPHY - BILATERAL SCREENING REASON FOR EXAM: Female, 61 years old. Routine annual screening examination. PERTINENT HISTORY: Mother with breast cancer. TECHNIQUE: Digital bilateral breast mando (3D mammographic acquisition) in the CC and MLO projections. 2-D mediolateral oblique (MLO) and craniocaudad (CC) views of both breasts were obtained. CAD: Full Field Digital Mammography with Computer Added Detection was performed. COMPARISON: Comparison is made with prior study dated 05/11/2020 and 07/11/2018. FINDINGS: Breast Composition: The breasts are almost entirely fatty. There are no dominant masses or suspicious calcifications. Stable 8 mm well-defined nodule in the axillary region of the left breast suggestive of a small lymph node. Prior ultrasound of the left breast demonstrated this to be a lymph node. No other significant abnormalities are identified. There has been no significant change since the prior study. BI/SCRN MAMM (CAD)W/MANDO BILAT IMPRESSION: Stable bilateral screening mammogram. Yearly follow-up mammogram recommended. (A) ASSESSMENT CATEGORY: BIRADS Category 2: Benign. A letter regarding these results will be sent to the patient by the facility within 30 days. Approximately 10% of breast cancers are not detected by mammography. A normal mammogram should not delay biopsy of a clinically suspicious abnormality. [id number] Electronically Signed: Willem Velasquez MD at 8:06 EDT , Service support ,
== END ==
PROVIDERS: PCP Student in an Organized Health Care Education/Training Program; Referring Provider Student in an Organized Health Care Education/Training Program; Visit Provider Student in an Organized Health Care Education/Training Program
DX: Z12.31 Encounter for screening mammogram for malignant neoplasm of breast (principal)
CPT/HCPCS: 77063; 77067

== ENCOUNTER → 2022-07-26 | Outpatient (CLI) | payer MEDICARE, SELFPAY ==
--- NOTE | 2022-07-26 08:15 | BI_ITS ---
MAMMOGRAPHY - BILATERAL SCREENING REASON FOR EXAM: Female, 62 years old. Routine annual screening examination. PERTINENT HISTORY: Mother with breast cancer. TECHNIQUE: Digital bilateral breast mando (3D mammographic acquisition) in the CC and MLO projections. 2-D mediolateral oblique (MLO) and craniocaudad (CC) views of both breasts were obtained. CAD: Full Field Digital Mammography with Computer Added Detection was performed. COMPARISON: Comparison is made with prior study dated 06/07/2021 and 05/11/2020. FINDINGS: Breast Composition: The breasts are almost entirely fatty. There are no dominant masses or suspicious calcifications. Stable fat-containing lymph node in the right axilla. No other significant abnormalities are identified. There has been no significant change since the prior study. BI/SCRN MAMM (CAD)W/MANDO BILAT IMPRESSION: Stable bilateral screening mammogram. Yearly follow-up mammogram recommended. (A) ASSESSMENT CATEGORY: BIRADS Category 2: Benign. A letter regarding these results will be sent to the patient by the facility within 30 days. Approximately 10% of breast cancers are not detected by mammography. A normal mammogram should not delay biopsy of a clinically suspicious abnormality. [id number] Electronically Signed: Willem Velasquez MD at 9:39 EST ,
== END | disposition home or self-care (01) ==
LOC: OPBI 08:13
PROVIDERS: PCP Student in an Organized Health Care Education/Training Program; Visit Provider Nurse Practitioner Family
DX: Z12.31 Encounter for screening mammogram for malignant neoplasm of breast (principal)
CPT/HCPCS: 77063; 77067

== ENCOUNTER → 2023-08-08 | Outpatient (CLI) | payer MEDICARE, SELFPAY ==
--- NOTE | 2023-08-08 11:41 | BI_ITS ---
MAMMOGRAPHY - BILATERAL SCREENING REASON FOR EXAM: Female, 63 years old. Routine annual screening examination. PERTINENT HISTORY: Mother with breast cancer. TECHNIQUE: Digital bilateral breast mando (3D mammographic acquisition) in the CC and MLO projections. 2-D mediolateral oblique (MLO) and craniocaudad (CC) views of both breasts were obtained. CAD: Full Field Digital Mammography with Computer Added Detection was performed. COMPARISON: Comparison is made with prior study dated July 26, 2022 and June 07, 2021. FINDINGS: Breast Composition: The breasts are almost entirely fatty. There are no dominant masses or suspicious calcifications. No other significant abnormalities are identified. There has been no significant change since the prior study. BI/SCRN MAMM (CAD)W/MANDO BILAT IMPRESSION: Stable bilateral screening mammogram. Yearly follow-up mammogram recommended. (A) ASSESSMENT CATEGORY: BIRADS Category 1: Negative. A letter regarding these results will be sent to the patient by the facility within 30 days. Approximately 10% of breast cancers are not detected by mammography. A normal mammogram should not delay biopsy of a clinically suspicious abnormality. [id number] Electronically Signed: Willem Velasquez MD at 12:45 EST ,
== END | disposition home or self-care (01) ==
LOC: OPBI 11:40
PROVIDERS: PCP Student in an Organized Health Care Education/Training Program; Referring Provider Nurse Practitioner Primary Care; Visit Provider Nurse Practitioner Primary Care
DX: Z12.31 Encounter for screening mammogram for malignant neoplasm of breast (principal)
CPT/HCPCS: 77063; 77067

== ENCOUNTER 2024-04-01 10:00 | Outpatient (RCR) | payer MEDICARE, SELFPAY ==
--- NOTE | 2023-12-23 00:06 | HP.PTEVAL_ITS ---
Patient's Visit Information Visit Information Visit Information: JONO DURAN is a 63 year old F referred to Physical Therapy by Dr. Jane Posey MD with a diagnosis of MIXED URINARY INCONTINENCE. Date of Evaluation: 12/16/23 Physical Therapist: Susi Cunningham PT, Cert MDT Visit Plan Frequency: 1x/Week Duration: 2-4 Months Plan: PF THERAPY FOR STRENGTHENING, LENGTHENING/RELAXATION AND ENDURANCE TRA INING. URINARY URGE AND FREQUENCY EDUCATION. HEALTHY BLADDER HABIT EDUCATION. TRAINING IN COORDINATION OF PELVIC FLOOR MUSCULATURE WITH HIP AND CORE (TRANSVERSE ABDOMINUS) MUSCULATURE. CORE STRENGTHENING. ROSALIE LE ROM, STRETCHING AND STRENGTHENING. TRAINING IN ABDOMINAL CAVITY PRESSURE MGMT WITH ADL'S. Subjective Subjective: Work/Leisure: RETIRED Disability: YES. 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 Present symptoms: URINARY LEAKAGE. Present since: ABOUT 4 YEARS AGO Pain Scale: N/A Is it getting better, worse or staying the same: GETTING WORSE Commenced as a result of: NO APPARENT REASON Worse: COUGHING, SNEEZING, DEEP CLEANING, EXERCISING, A LOT OF UP AND DOWN, SITTING, STANDING, WAITING MORE THAN 30 MIN TO GET TO THE BATHROOM. Better: NOTHING Disturbed sleep: GETTING UP TO URINATE ONE TIME AT NIGHT. Previous history/Previous treatment: KEGEL EX'S BACK IN THE 80'S ON OWN WHEN UI FIRST STARTED. 90'S SAW A UROLOGIST - SAID TO KEEP DOING KEGELS AND RECOMMENDED A SLING - DONE IN 1997. SLING WORKED FINE UNTIL ABOUT 4 YEARS AGO. TRIED TO DEAL WITH IT ON HER OWN AT FIRST. STARTED OUT WITH DRIBBLES THEN HAD TO START WEARING PADS. CONSULTED DR. POSEY ABOUT A YEAR AGO. HAS TRIED TWO DIFFERENT TYPES OF MEDICATIONS WITH BENEFIT FROM GEMTESA (ON, OFF AND BACK ON THE MEDICATION) BUT GOT BRONCHITIS AND ISN'T SURE IF MEDICATION WILL BE ABLE TO OVER-COME COUGHING. ALMOST OVER THE COUGHING NOW. PATIENT REPORTS SHE HAD A LOT OF TESTING WITH DR. POSEY AND DR. POSEY TOLD HER HER SLING IS PERFECT AND NO FURTHER SURGERY FOR THAT IS RECOMMENDED AT THIS TIME. PATIENT STATES SHE INQUIRED ABOUT AXONICS AND DR. POSEY RECOMMENDED TRYING PT FIRST. Treatment this episode: GEMTESA. Gait: INDEP GAIT WITHOUT AD. DENIES FALLS. How long can you delay the need to urinate: ABOUT 30 MIN. Prolapse (Falling out feeling): NO Frequency of Urination: ABOUT EVERY 3 HOURS Ability to stop urine flow: PARTIALLY Ability to initiate urine stream: YES Dyspareunia: N/A Bowel Incontinence: NO Accidents: NO Unexplained weight loss: NO Imaging: NONE RECENT. PMH/Recent major surgery: L THR. LUMBAR FUSION. ROSALIE TKR'S. NIDDM OTHER: STATES SHE HAD A PELVIC EXAM BY HER GYNOCOLOGIST IN [place] AND SHE TOLERATED IT WELL. HORMONE THERAPY RECOMMENDED BUT SHE DECLIINED. Objective Objective: Sitting/Standing Posture: INCREASED KYPHOSIS. SCOLIOSIS. L ILIAC CREST HIGHER THAN R. INCREASED LORDOSIS. ANTERIOR PELVIC TILT. STANDS WITH GREATER WEIGHT ON R LE THAN L AND L KNEE BENT. STANDS WITH INCREASED TRUNK FLEXION. Active Correction of posture: INCREASES BACK PAIN. ONLY ABLE TO PARTIALLY CORRECT. Other Observations: THIS PATIENT AMBULATES INDEP'LY INTO PT WITHOUT ANY AD'S WITH INCREASED TRUNK FLEXION, DECREASED CADANCE, DECREASED ROSALIE STRIDE LENGTH BUT NO LOB. PATIENT IS ABLE TO TRANSFER INDEP'LY FORM SIT TO STAND WITHOUT UE ASSIST. Sensory deficit: ROSALIE LE LIGHT TOUCH SENSATION IS GROSSLY INTACT AND SYMMETRICAL ROM deficit: ROSALIE HIP IR/ER, HIP FLEXOR TIGHTNESS. ROSALIE HS AND CALF TIGHTNESS. Motor deficit: ROSALIE LE'S GROSSLY 5/5 WITH MMT'ING EXCEPT HIPS 4-/5. PATIENT COMMUNICATES BEING ABLE TO CONTRACT PF X 4 SEC X 3 REPS BEFORE FATIGUE STARTS. Dural Signs: NEGATIVE ROSALIE LE'S. Lumbar mvmt loss: flex - MOD ext - INOCENTE R SG - INOCENTE L SG - INOCENTE PATIENT C/O INCREASED LOW BACK PAIN WITH LUMBAR ROM TESTING ALL PLANES. STOPS WHEN BACK STARTS TO HURT SO NW. Core strength: POOR Palpation: PATIENT DECLINED VAGINAL PELVIC EXAM DUE TO HER BACK BEING FLARED UP AND REFERRING PAIN INTO HER R HIP AND LEG. FUNCTIONAL SCREEN: Incontinence Impact Questionnaire Score: 12 Urogenital Distress Inventory Score: 11 Goals Goal 1:: DECREASE URINARY LEAKAGE EPISODES TO ONE OR LESS PER DAY Goal Time Frame: 8-12 Weeks Goal 2:: PATIENT WILL SUCCESSFULLY DELAY VOIDING LONG NEEDED WHEN URGENCY OCCURS TO SUCCESSFULLY MAKE IT TO THE BATHROOM. Goal Time Frame: 4-6 Weeks Goal 3:: PATIENT WILL DEMONSTRATE/COMMUNICATE 10 CONSISTENT AND CONSECUTIVE 10 SECOND PELVIC FLOOR MUSCLE CONTRACTIONS TO DEMONSTRATE IMPROVED PELVIC FLOOR ENDURANCE. Goal Time Frame: 8-12 Weeks Goal 4:: DEVELOP HEALTHY FLUID INTAKE HABITS WITH FLUID INTAKE OF ? BODY WEIGHT IN OUNCES PER DAY AND 2/3 BEING WATER. Goal Time Frame: 2-4 Weeks Goal 5:: NORMALIZE VOIDING FREQUENCEY TO EVERY 3-4 HOURS. Goal Time Frame: 4-6 Weeks Goal 6:: PATIENT WILL BE INDEP WITH A HEP/HOME INSTRUCTIONS FOR CONTINUED IMPROVEMENT ONCE FORMAL PHYSICAL THERAPY CONCLUDES. Goal Time Frame: 8-12 Weeks Rehabilitation Potential Physical Therapy Diagnosis: SIGNS AND SYMPTOMS OF STRESS AND URGE INCONTINENCE. CORE AND LE WEAKNESS AND STIFFNESS. Rehabilitation Potential: Good Anticipated Interventions Patient/Client Instruction: Educate patient on: Condition, Plan of Care and Risk Factors For the Purpose of:: To improve self management Therapeutic Exercise to Include: Strength training, Endurance training, Chain Tender rdination, Postural training, Flexibilty training and Neuromotor development For the Purpose of:: To improve muscle performance and motor function, To increase tolerance to activity/condition/position, To improve ability of physical actions for home/community/work/leisure and To increase flexibility/ROM Text: Thank you for the opportunity to evaluate your patient. For Medicare and Medicare HMO plans, please review the plan of care and approve it. It will need to be FAXED BACK to us at [phone] for Medicare purposes. For Medicare only, by signing this I certify the plan of care. Please let me know if there are questions or concerns regarding this plan of care. Physician Signature: Date:
--- NOTE | 2024-04-01 10:53 | HP.PTDCSUM_ITS ---
Discharge Summary D/C summary: It has been my pleasure to treat JONO DURAN referred by Dr. Jane Posey MD, with the diagnosis of MIXED URINARY INCONTINENCE for a total of 11 visit(s). Discharge Date: 04/01/24 Please see the following information for a summary of their discharge status. Subjective Subjective: PATIENT REPORTS SHE HASN'T HAD ANY PROBLEMS WITH HER BLADDER AND SHE IS DOING HER HOME EX'S. USE TO WEAR UI PADS ALL THE TIMES. WENT FROM THICK TO THINNER BUT NO LONGER WEARING PADS. HAS NOT BEEN ON GEMTESA OR ANY BLADDER MEDICATION SINCE THE BEGINNING OF DECEMBER 2023 PER PATIENT REPORT. STATES THERAPY HAS EXCEEDED HER EXPECTATIONS. REPORTS SHE HAD A BACK FLARE UP FOR NO APPARENT REASON LAST WEEK BUT FEELING BETTER NOW. OVER-ALL REPORTS THERAPY HAS HELPED HER BACK PAIN TOO. BROUGHT LUMBAR MRI RESULTS FROM 03/24/24: MULTILEVEL SEVERE NEURAL FORAMINAL STENOSIS. FOLLOW UP WITH DR. POSEY PENDING NEXT WEEK AND FOLLOW UP WITH PAIN MGMT PENDING SOON TOO. Pain LOW BACK PAIN: Pain Intensity (Out of 10): 3 GENITAL AREA: Pain Intensity (Out of 10): 0 R HIP: Pain Intensity (Out of 10): 0 Overall Improvement % Improvement: 100 Objective Objective/Function: THIS PATIENT HAS DONE REALLY WELL WITH PHYSICAL THERAPY. ALL GOALS HAVE BEEN MET. SHE IS APPROPRIATE FOR AND AGREEABLE TO DISCHARGE. FUNCTIONAL SCREEN: Incontinence Impact Questionnaire Score: 0 (COMPARED TO 12 AT EVAL) Urogenital Distress Inventory Score: 2 (COMPARED TO 11 AT EVAL) Goals Goal 1:: DECREASE URINARY LEAKAGE EPISODES TO ONE OR LESS PER DAY Goal Progress: Goal Met Goal 2:: PATIENT WILL SUCCESSFULLY DELAY VOIDING LONG NEEDED WHEN URGENCY OCCURS TO SUCCESSFULLY MAKE IT TO THE BATHROOM. Goal Progress: Goal Met Goal 3:: PATIENT WILL DEMONSTRATE/COMMUNICATE 10 CONSISTENT AND CONSECUTIVE 10 SECOND PELVIC FLOOR MUSCLE CONTRACTIONS TO DEMONSTRATE IMPROVED PELVIC FLOOR E NDURANCE. Goal Progress: Goal Met Goal 4:: DEVELOP HEALTHY FLUID INTAKE HABITS WITH FLUID INTAKE OF ? BODY WEIGHT IN OUNCES PER DAY AND 2/3 BEING WATER. Goal Progress: Goal Met Goal 5:: NORMALIZE VOIDING FREQUENCEY TO EVERY 3-4 HOURS. Goal Progress: Goal Met Goal 6:: PATIENT WILL BE INDEP WITH A HEP/HOME INSTRUCTIONS FOR CONTINUED IMPROVEMENT ONCE FORMAL PHYSICAL THERAPY CONCLUDES. Goal Progress: Goal Met Plan Plan: D/C D/C Information d/c sentence: If there are questions or concerns regarding this patient's physical therapy, please feel free to call me at [phone]. Thank you for the referral of this patient. Sincerely, Susi Cunningham, PT, Cert MDT Balance/Gait/Functional tests Improvement % Improvement: 100
== END 2024-04-01 12:29 | disposition home or self-care (01) ==
LOC: PT 10:00
PROVIDERS: PCP Student in an Organized Health Care Education/Training Program; Referring Provider Urology; Visit Provider Urology
DX: N39.46 Mixed incontinence (principal)
CPT/HCPCS: 97162; 97530

== ENCOUNTER → 2024-08-20 | Outpatient (CLI) | payer MEDICARE, SELFPAY ==
--- NOTE | 2024-08-20 11:51 | BI_ITS ---
MAMMOGRAPHY - BILATERAL SCREENING 3-D TOMOSYNTHESIS REASON FOR EXAM: Female, 64 years old. SCREENING PERTINENT HISTORY: No significant family history. TECHNIQUE: 2-D mammograms and 3-D Tomosynthesis of the breast (s) were performed. CAD was performed. COMPARISON: 08/08/2023 FINDINGS: The breast composition is composed of scattered fibroglandular density. Scattered benign calcifications are seen. No dense spiculated masses or suspicious microcalcifications are identified. No architectural distortion is identified. There is no skin thickening or retraction. There has been no significant change since the prior study. BI/SCRN MAMM (CAD)W/MANDO BILAT IMPRESSION: No mammographic signs of malignancy. Routine yearly mammograms recommended. ASSESSMENT CATEGORY: BIRADS Category 1: Negative. A letter regarding these results will be sent to the patient by the facility within 30 days. FOLLOW UP RECOMMENDATION: Yearly follow up mammogram recommended. (A) Approximately 10% of breast cancers are not detected by mammography. A normal mammogram should not delay biopsy of a clinically suspicious abnormality. Electronically Signed: Daniele Ferris MD at 19:17 EST ,
== END | disposition home or self-care (01) ==
LOC: OPBI 11:50
PROVIDERS: PCP Nurse Practitioner Primary Care; Referring Provider Nurse Practitioner Primary Care; Visit Provider Nurse Practitioner Primary Care
DX: Z12.31 Encounter for screening mammogram for malignant neoplasm of breast (principal)
CPT/HCPCS: 77063; 77067

== ENCOUNTER → 2025-03-19 | Outpatient (CLI) | payer MEDICARE, SELFPAY | END | disposition home or self-care (01) | LOC: MTLAB 10:24 | PROVIDERS: PCP Nurse Practitioner Primary Care; Referring Provider Orthopaedic Surgery; Visit Provider Orthopaedic Surgery | DX: Z79.899 Other long term (current) drug therapy (principal) | CPT/HCPCS: 36415; 82565 ==

== ENCOUNTER → 2025-04-27 | Outpatient (CLI) | payer MEDICARE, SELFPAY ==
--- NOTE | 2025-04-27 | MRI_ITS ---
PROCEDURE: SPINE LUMBAR W/WO CONTRAST 04/27/2025 REASON FOR EXAM: PAIN, HX OF LUMBAR SURGERY, STENOSIS, DDD TECHNIQUE: Procedure Code: [id number] Modality: MR Procedure: SPINE LUMBAR W/WO CONTRAST Multiplanar and multisequence images were obtained without and with intravenous gadolinium-based contrast administration. CONTRAST: Vibha scan VOLUME: 19 mL FINDINGS: No lumbar compression deformity. Lower lumbar decompression. T12-L1 is unremarkable. Spinal stimulator leads are in place. At L1-2, concentric annular bulging results in a mild degree of canal narrowing. To the left there is a left paracentral protrusion which migrates inferiorly without definitive nerve root impingement. At L2-3, there is no central or foraminal impingement. At L3-4 there is left L3 nerve root compression secondary to foraminal protrusion. Dorsal decompression with narrowing of the transverse diameter of the thecal sac. At L4-5, dorsal decompression without recurrent central or foraminal impingement At L5-S1 facet arthrosis without central or foraminal encroachment. Postcontrast images are negative for abnormal enhancement of the cauda equina. No paravertebral soft tissue masses are identified. MRI/Spine Lumbar W/WO Contrast IMPRESSION: Multilevel dorsal decompression. Spinal stimulator leads are in place. The do minant finding is of the left L3 foraminal nerve root compression secondary to disc protrusion. There is a smaller left paracentral protrusion at L1-2 without nerve root impin gement. Reading Location: [id number]
== END | disposition home or self-care (01) ==
LOC: MRI 10:14
PROVIDERS: PCP Nurse Practitioner Primary Care; Referring Provider Student in an Organized Health Care Education/Training Program; Visit Provider Student in an Organized Health Care Education/Training Program
DX: M48.062 Spinal stenosis, lumbar region with neurogenic claudication (principal); M51.362 Other intervertebral disc degeneration, lumbar region with discogenic back pain and lower extremity pain
CPT/HCPCS: 72158; A9575; A4216